=== PATIENT | male | born 1945 | race Caucasian/White ===

== ENCOUNTER → 2022-01-14 07:59 | Outpatient (BNVA) | payer OTHER, SELFPAY | PROVIDERS: PCP Internal Medicine; Visit Provider Nurse Practitioner | DX: Z01.818 Encounter for other preprocedural examination (principal); D12.6 Benign neoplasm of colon, unspecified; Z85.850 Personal history of malignant neoplasm of thyroid | CPT/HCPCS: 99202 ==

== ENCOUNTER 2022-01-16 10:40 | Outpatient (REF) | payer OTHER, SELFPAY ==
[2022-01-16 10:54] LABS: MANUAL DIFF FLAG NO
[2022-01-16 11:27] LABS: Basophils Percent Auto 0.5 % (0-2); Eosinophils Absolute Auto 0.2 X10*3/uL (0.0-0.4); Eosinophils Percent Auto 3.1 % (0-4); Hemoglobin 14.2 g/dl (14.0-18.0); Imm Gran Abs Auto 0.05 X10*3/uL (0.00-0.03); Imm Gran Pct Auto 0.8 % (0.0-0.4); Lymphocytes Absolute Auto 1.3 X10*3/uL (1.2-4.9); Lymphocytes Percent Auto 21.9 % (20-40); Mean Corpuscular HGB Conc 33.8 g/dl (31.0-36.0); Mean Corpuscular Hemoglobin 28.7 pg (27.0-33.0); Mean Platelet Volume 9.9 fL (9.4-12.4); Monocytes Absolute Auto 0.6 X10*3/uL (0.1-1.2); Monocytes Percent Auto 9.1 % (2-11); Neutrophils Absolute Auto 3.9 x10*3/uL (2.0-8.3); Neutrophils Percent Auto 64.6 % (45-73); Platelet Count 215 X10*3/uL (160-400); Red Blood Count 4.94 X10*6/uL (4.60-5.80); Red Cell Distribution Width 13.2 % (11.0-16.0); White Blood Count 6.1 X10*3/uL (4.8-10.8)
[2022-01-16 12:28] LABS: Alanine Aminotransferase 6 U/L (0-40); Albumin Level 4.2 g/dL (3.5-5.0); Alkaline Phosphatase 101 U/L (39-117); Anion Gap 16 (12-20); Aspartate Amino Transferase 20 U/L (5-37); Blood Urea Nitrogen 14 mg/dL (9-16); Calcium 8.5 mg/dL (8.4-10.2); Carbon Dioxide 28 mmol/L (22-29); Chloride 101 mmol/L (96-108); Estimated Glomerular Filt Rate > 60; Glucose Random 112 mg/dL (60-115); Potassium 3.9 mmol/L (3.3-5.1); Sodium 141 mmol/L (135-145)
== END 2022-01-16 10:41 | disposition home or self-care (01) ==
LOC: HO.LAB 10:40
PROVIDERS: PCP Internal Medicine; Visit Provider Nurse Practitioner
DX: D12.6 Benign neoplasm of colon, unspecified (principal)
CPT/HCPCS: 36415; 80053; 85025

== ENCOUNTER 2022-05-14 09:12 | Day surgery (SDC) | payer OTHER, SELFPAY ==
[2022-05-08 15:45] VITALS: BMI 31.4
--- NOTE | 2022-05-13 10:29 | P.CONAN_ITS ---
Documented by User: Teetee Sousa NP 05/13/22 10:32 HPI - Anesthesia Eval Consult details Narrative: 76yo M for Colonoscopy [facility] Active Problems Active Problems: All Active Problems (Updated 05/08/22 @ 15:21 by Kamila Mary, AZUL) Hypothyroidism associated with surgical procedure (Acute) Hypertension (Acute) High cholesterol (Acute) Thoracic aortic aneurysm (Acute) Hard of hearing (Acute) Depression (Acute) PTSD (post-traumatic stress disorder) (Acute) Lumbar degenerative disc disease (Acute) T12 compression fracture (Acute) Papilloma (Acute) Open-angle glaucoma (Acute) GERD (gastroesophageal reflux disease) (Acute) Chronic low back pain (Acute) Chronic, continuous use of opioids (Acute) Tubular adenoma of colon (Acute) Past Medical History Medical History Arthritis Back pain Depression GERD (gastroesophageal reflux disease) HTN (hypertension) PTSD (post-traumatic stress disorder) Thoracic aortic aneurysm Thyroid cancer Tinnitus Family History Family History Father No problems noted. Mother No problems noted. Surgical History Surgical History History of esophagogastroduodenoscopy (EGD) Hx of colonoscopy Hx of inguinal hernia repair Hx of knee surgery Hx of removal of testicle Social History Social History Patient Tobacco Use Status: Never used Tobacco Use of substances other than those prescribed or required for medical reasons: No Are you DNR?: No Advance Directives: No Advance Directives Information Provided: Yes Meds Allergies Allergy/AdvReac Type Severity Reaction Status Date / Time No Known Allergies Allergy Verified 05/08/22 15:10 Home Medications Medication Instructions Recorded Confirmed Last Taken Type amlodipine 2.5 mg tablet 2.5 mg PO DAILY 01/14/22 05/08/22 Unknown History aspirin 81 mg tablet,delayed 81 mg PO DAILY 01/14/22 05/08/22 Unknown History release atorvastatin 40 mg tablet 40 mg PO DAILY 01/14/22 05/08/22 Unknown History cholecalciferol (vitamin D3) 350 350 mcg PO QWEEK 01/14/22 05/08/22 Unknown History mcg (14,000 unit) capsule docusate sodium 100 mg capsule 100 mg PO DAILY 01/14/22 05/08/22 Unknown History dorzolamide 2 % eye drops 1 drp ophthalmic (eye) TID 01/14/22 05/08/22 Unknown History gabapentin 300 mg capsule 300 mg PO DAILY 01/14/22 05/08/22 Unknown History guaifenesin 100 mg/5 mL oral liquid 200 mg PO Q4H PRN Cough 01/14/22 05/08/22 Unknown History hydrochlorothiazide 25 mg tablet 25 mg PO DAILY 01/14/22 05/08/22 Unknown History latanoprost 0.005 % eye drops 1 drp ophthalmic (eye) DAILY 01/14/22 05/08/22 Unknown History levothyroxine 125 mcg capsule 150 mcg PO DAILY 01/14/22 05/08/22 Unknown History magnesium oxide 420 mg tablet 420 mg PO BEDTIME 01/14/22 05/08/22 Unknown History nortriptyline 10 mg capsule 10 mg PO DAILY 01/14/22 05/08/22 Unknown History omega 6-uwp-lxy-fish oil 100 1 cap PO DAILY 01/14/22 05/08/22 Unknown History mg-160 mg-1,000 mg capsule (Fish Oil) sennosides 8.6 mg capsule (senna) 8.6 mg PO DAILY 01/14/22 05/08/22 Unknown History sertraline 25 mg tablet 25 mg PO DAILY 01/14/22 05/08/22 Unknown History simethicone 80 mg chewable tablet 80 mg PO BEDTIME 01/14/22 05/08/22 Unknown History (Gas Relief (simethicone)) terazosin 2 mg capsule 2 mg PO DAILY 01/14/22 05/08/22 Unknown History trazodone 50 mg tablet 25 mg PO DAILY 01/14/22 05/08/22 Unknown History pantoprazole 40 mg tablet,delayed 40 mg PO DAILY 05/08/22 05/08/22 Unknown History release potassium chloride 20 mEq/15 mL 20 meq PO DAILY 05/08/22 05/08/22 Unknown History oral liquid Exam Exam Date and Time: May 13, 2022 1029 Height,Weight and Vital Signs: Height 5 ft 11 in Weight 102.058 kg Pertinent Lab Results Pertinent Lab Results: Laboratory Tests 01/16/22 01/16/22 10:53 10:53 WBC 6.1 Hgb 14.2 Hct 42.0 Plt Count 215 Sodium 141 Potassium 3.9 Chloride 101 Carbon Dioxide 28 BUN 14 Creatinine 0.95 Assessment and Plan Assessment Anesthesia Assessment: Chart Reviewed Documented by User: Amanda Donovan MD 05/14/22 09:41 [facility] Past Medical History Medical History Arthritis Back pain Depression GERD (gastroesophageal reflux disease) HTN (hypertension) PTSD (post-traumatic stress disorder) Thoracic aortic aneurysm Thyroid cancer Tinnitus Family History Family History Father No problems noted. Mother No problems noted. Surgical History Surgical History History of esophagogastroduodenoscopy (EGD) Hx of colonoscopy Hx of inguinal hernia repair Hx of knee surgery Hx of removal of testicle History of Problems with Anesthesia: No Social History Social History Patient Tobacco Use Status: Never used Tobacco Use of substances other than those prescribed or required for medical reasons: No Are you DNR?: No Advance Directives: No Advance Directives Information Provided: Yes Meds Allergies Allergy/AdvReac Type Severity Reaction Status Date / Time No Known Allergies Allergy Verified 05/08/22 15:10 Home Medications Medication Instructions Recorded Confirmed Last Taken Type amlodipine 2.5 mg tablet 2.5 mg PO DAILY 01/14/22 05/08/22 Unknown History aspirin 81 mg tablet,delayed 81 mg PO DAILY 01/14/22 05/08/22 Unknown History release atorvastatin 40 mg tablet 40 mg PO DAILY 01/14/22 05/08/22 Unknown History cholecalciferol (vitamin D3) 350 350 mcg PO QWEEK 01/14/22 05/08/22 Unknown History mcg (14,000 unit) capsule docusate sodium 100 mg capsule 100 mg PO DAILY 01/14/22 05/08/22 Unknown History dorzolamide 2 % eye drops 1 drp ophthalmic (eye) TID 01/14/22 05/08/22 Unknown History gabapentin 300 mg capsule 300 mg PO DAILY 01/14/22 05/08/22 Unknown History guaifenesin 100 mg/5 mL oral liquid 200 mg PO Q4H PRN Cough 01/14/22 05/08/22 Unknown History hydrochlorothiazide 25 mg tablet 25 mg PO DAILY 01/14/22 05/08/22 Unknown History latanoprost 0.005 % eye drops 1 drp ophthalmic (eye) DAILY 01/14/22 05/08/22 Unknown History levothyroxine 125 mcg capsule 150 mcg PO DAILY 01/14/22 05/08/22 Unknown History magnesium oxide 420 mg tablet 420 mg PO BEDTIME 01/14/22 05/08/22 Unknown History nortriptyline 10 mg capsule 10 mg PO DAILY 01/14/22 05/08/22 Unknown History omega 5-qrz-ucq-fish oil 100 1 cap PO DAILY 01/14/22 05/08/22 Unknown History mg-160 mg-1,000 mg capsule (Fish Oil) sennosides 8.6 mg capsule (senna) 8.6 mg PO DAILY 01/14/22 05/08/22 Unknown History sertraline 25 mg tablet 25 mg PO DAILY 01/14/22 05/08/22 Unknown History simethicone 80 mg chewable tablet 80 mg PO BEDTIME 01/14/22 05/08/22 Unknown History (Gas Relief (simethicone)) terazosin 2 mg capsule 2 mg PO DAILY 01/14/22 05/08/22 Unknown History trazodone 50 mg tablet 25 mg PO DAILY 01/14/22 05/08/22 Unknown History pantoprazole 40 mg tablet,delayed 40 mg PO DAILY 05/08/22 05/08/22 Unknown History release potassium chloride 20 mEq/15 mL 20 meq PO DAILY 05/08/22 05/08/22 Unknown History oral liquid Exam Airway Mallampati Class: III TM Dist: >3cm Neck ROM: Full Loose/Missing/Broken Teeth: No Heart: RRR Lungs: CTA Assessment and Plan Assessment Anesthesia Assessment: Anesthesia Plan Discussed Final Anesthetic Review History of Problems with Anesthesia: No NPO: Yes ASA Class: II Final Preanesthetic Review: Meds/Allgs Chart Reviewed, Consent Obtained/Reviewed and Anes Risks/Benef Reviewed Patient Risk: Low Procedure Risk: Low Anesthetic Plan Anesthetic Plan: MAC: Disposition: Standard PACU
--- NOTE | 2022-05-14 09:21 | P.HPSUR_ITS ---
Pre-Procedural Eval Section A Date of Service: 05/14/22 Section B Chief Complaint: Benign neoplasm of colon, Relevant Family History (Specify if Yes): No Relevant Social History: None Present Medications: see Short Stay Collaborative assessment Medical History: Significant History (Arthritis Back pain Depression GERD (gastroesophageal reflux disease) HTN (hypertension) PTSD (post-traumatic stress disorder) Thoracic aortic aneurysm Thyroid cancer Tinnitus) History of Previous Operations: Relevant previous surgery/procedure and date(s) (Thyroidectomy, History of esophagogastroduodenoscopy (EGD) Hx of colonoscopy Hx of inguinal hernia repair Hx of knee surgery Hx of removal of testicle) Allergies: Allergies Allergy/AdvReac Type Severity Reaction Status Date / Time No Known Allergies Allergy Verified 05/08/22 15:10 Review of Systems Sugical H&P ROS: Negative: Constitution, Cardiovascular, Respiratory, Neurological, Psychiatric, Hem-Onc, Allergic/Immunologic, Gastrointestinal, Genitourinary, Musculoskeletal, Integumentary, Endocrine and Eyes/Ears/N ose/Throat Exam Surgical H&P Exam: Normal: HEENT, Normal: Heart, Normal: Lungs, Normal: Extremities, Normal: Abdomen, Normal: Skin and Normal: Neurological Plan Diagnosis/Plan: Unchanged I have reviewed the history and physical and performed a pertinent physical examination on my patient. No changes have occurred unless specified.
--- NOTE | 2022-05-14 09:25 | P.OP_ITS ---
Operative Note Operative Note Date of Service: 05/14/22 Narrative: Operative Information Procedure Description: Colonoscopy Indication: screening Anesthesia: MAC COLONOSCOPY Instrument: Olympus variable stiffness Adult scope 190L Colonoscopy Monitoring: Vital signs and clinical assessment, continuous EKG monitoring, Pulse oximetry, Carbon Dioxide monitoring and blood pressure monitoring were done throughout the procedure. Colon withdrawal time was 8 minutes. Procedure: The patient was placed in the left lateral decubitis position and pre-procedure medications were administered. After a digital rectal examination of the ano-rectum, the video colonoscope was inserted into the rectum and advanced through the colon to the cecum/TI. The colonoscope was slowly withdrawn in a retrograde panoramic fashion and the colon mucosa was carefully examined including a retroflexed view of the rectum. Findings and interventions are described below. Procedure Difficulty: easy Findings: Terminal Ileum-normal Cecum:normal Ascending Colon: normal Transverse Colon -normal Descending Colon:normal Sigmoid Colon: moderate diverticulosis with luminal narrowing, Rectum: Retroflexion with moderate sized internal hemorrhoids, grade II Anorectum - normal Colon preparation: [place] Bowel Preparation Scale Right colon; 3 Transverse colon: 3 Left colon; 3 (0 = Unprepared colon segment with mucosa not seen due to solid stool that cannot be cleared. 1 = Portion of mucosa of the colon segment seen, but other areas of the colon segment not well seen due to staining, residual stool and/or opaque liquid. 2 = Minor amount of residual staining, small fragments of stool and/or opaque liquid, but mucosa of colon segment seen well. 3 = Entire mucosa of colon segment seen well with no residual staining, small fragments of stool or opaque liquid) Impression and Post Procedure Diagnosis: internal hemorrhoids diverticular disease Plan: High fiber diet leaflet Avoid straining at stool, epsom salts and sitz bath, anusol supps or cream Repeat Colonoscopy in 10 years if health allows or earlier if clinically indicated, otherwise this would be his last screening colonoscopy Above findings were reviewed with the patient and relevant handouts were provided if indicated.
[2022-05-14 09:42] VITALS: BP 155/75; PULSE 65; RESP 15; TEMP 36.4; O2SAT 98
[2022-05-14] MEDS: Lactated Ringers 1,000 ML 100 ML IVCONT (09:43)
[2022-05-14 10:14] VITALS: BP 97/47; PULSE 55; RESP 16; TEMP 36.4; O2SAT 96
[2022-05-14 10:34] VITALS: BP 134/55; PULSE 58; RESP 18; TEMP 36.4; O2SAT 97
== END 2022-05-14 11:19 | disposition home or self-care (01) ==
PROVIDERS: PCP Internal Medicine; Visit Provider Internal Medicine Gastroenterology
PROC: 0DJD8ZZ Inspection of Lower Intestinal Tract, Via Natural or Artificial Opening Endoscopic (ICD-10-PCS; CPT 45378; principal; 2022-05-14 10:10)
DX: Z12.11 Encounter for screening for malignant neoplasm of colon (principal); K57.30 Diverticulosis of large intestine without perforation or abscess without bleeding; K64.1 Second degree hemorrhoids; Z86.010 Personal history of colon polyps; I10 Essential (primary) hypertension; K21.9 Gastro-esophageal reflux disease without esophagitis; E78.00 Pure hypercholesterolemia, unspecified; Z79.82 Long term (current) use of aspirin; Z79.899 Other long term (current) drug therapy; Z85.850 Personal history of malignant neoplasm of thyroid
CPT/HCPCS: G0105

== ENCOUNTER → 2022-05-27 07:31 | Outpatient (BNVA) | payer OTHER, SELFPAY | PROVIDERS: PCP Internal Medicine; Referring Provider Internal Medicine; Visit Provider Nurse Practitioner | DX: D12.6 Benign neoplasm of colon, unspecified (principal); K21.9 Gastro-esophageal reflux disease without esophagitis | CPT/HCPCS: 99212 ==

== ENCOUNTER → 2024-01-25 09:06 | Outpatient (REF) | payer OTHER, SELFPAY ==
--- NOTE | 2024-01-25 | CA_ITS ---
Acquisition Time: 2024-01-25 09:31:07 Total Exercise Time: 00:02:00 Test Indications: HTN Medications: SEE H Protocol: LEXISCAN Max HR: 081 BPM 56% of Pred: 144 BPM Max BP: 148/070 mmHG Max Work Load: 1.6 METS Pharmacological stress test while walking slowly on the treadmill due to bradycardia without anginal symptoms, with PVCs, atrail tach, with normotensive response to injection, with nondiagnoisirtic EKGs. Nuclear images pending. Test reviewed with Dr. Omer. Referred By: Iliana Duke Overread By: Bhargavi Mcclendon
--- NOTE | ~2024-01-25 | NM_ITS ---
Myocardial perfusion study Indication: Chest pain to evaluate for myocardial ischemia Technique: The patient was brought in for a Lexiscan perfusion study on 01/25/2024. Patient performed low-level exercise and was injected 0.4 mg of Lexiscan intravenously. Within a minute of injection, 30 mCi of sestamibi was given intravenously. Images were obtained using the SPECT gamma camera interlaced with the gating device. Images were obtained in supine position. Resting perfusion study was performed on 01/26/2024. Patient was administered 30 mCi of sestamibi intravenously at rest. Images were then obtained in supine position. Images obtained with and without CT attenuation. Total DLP 119 mGy-cm. Images were processed with the software and compared side to side in short axis, horizontal long axis and vertical long axis views. Findings: The stress perfusion study showed non attenuated images show some thinning of the distal lateral and apical wall of the LV myocardium as well as mildly reduced uptake in the basal inferior wall of the LV myocardium. Remainder of the LV myocardium is normally perfused. Attenuation corrected images show mildly reduced uptake in the apex of the LV myocardium.. The gated study shows normal LV systolic function with calculated LVEF of 63%. LV cavity is normal in size. The gated study shows normal systolic wall thickening and contraction of segments. Resting study shows no change in perfusion pattern compared to stress study. Gating at rest reveals normal systolic wall motion with ejection fraction at greater than 60%. The findings are consistent with no reversible defect suggestive of ischemia. Likely normal myocardial perfusion. NM/NM milagro perf SPECT rest & str Impression: 1. Myocardial perfusion imaging study shows likely normal myocardial perfusion 2. Gated LVEF is 63% 3. Transient ischemic dilatation not present EKG is nondiagnostic for ischemia
== END ==
LOC: HO.CARD 09:06
PROVIDERS: Visit Provider Internal Medicine
DX: R07.89 Other chest pain (principal)
CPT/HCPCS: 78452; 93017; A9500; J0280; J2785

== ENCOUNTER → 2024-01-25 09:31 | Outpatient (BNV) | payer OTHER, SELFPAY | PROVIDERS: Visit Provider Nurse Practitioner | DX: R07.9 Chest pain, unspecified (principal) | CPT/HCPCS: 78452; 93016; 93018 ==

== ENCOUNTER 2024-04-15 09:53 | Emergency (ER) | payer OTHER, SELFPAY ==
--- NOTE | ~2024-04-15 | XR_ITS ---
EXAMINATION: XR SHOULDER, RIGHT CLINICAL INFORMATION: Injury one week ago. COMPARISON: None available. TECHNIQUE: AP external rotation, Grashey, scapular Y, and axillary views of the right shoulder. FINDINGS: Degenerative changes in the glenohumeral joints and acromioclavicular joint. No acute cortical disruption or gross malalignment. No lytic or blastic lesions well-corticated calcifications at the subacromial joints.. XR/XR shoulder RT min 2V IMPRESSION: Osteoarthrosis without acute fracture or dislocation. Electronically signed by: Lavon Melissa MD 04/15/2024 10:43 AM [facility]
[2024-04-15 10:12] VITALS: BP 136/63; PULSE 53; RESP 18; TEMP 36.8; O2SAT 97; BMI 32.0
--- NOTE | 2024-04-15 10:18 | ED_ITS ---
HPI - Extremity Problem General Chief complaint: Extremity Injury, Upper Stated complaint: shoulder pain Time Seen by Provider: 04/15/24 10:18 Source: patient Mode of arrival: ambulatory Limitations: no limitations History of Present Illness ED Provider: OSCAR LUX PA-C HPI Narrative: 78 year old male with pmhx significant for hypothyroidism, HTN, depression, PTSD, GERD presents to the ED today for evaluation of right shoulder pain x1 week. Admits to using a drill with a wire brush attachment. The brush attachment got caught in his glove and he was trying to pull the attachment from his glove with his RUE. Reports pain to his right shoulder since this time. Believe he may have strained the shoulder when pulling Admits to slight tingling sensation down the RUE beginning in the right shoulder. Denies any difficulty moving the shoulder. Taking Tylenol and applying bengay muscle cream at home with minimal relief. No blunt trauma to the shoulder. No hx of surgery on the shoulder. Denies fever, chills, numbness/weakness of the RUE. Related Data Home Medications ?Medication ?Instructions ?Recorded ?Confirmed amlodipine 2.5 mg tablet 2.5 mg PO DAILY 01/14/22 05/08/22 aspirin 81 mg tablet,delayed 81 mg PO DAILY 01/14/22 05/08/22 release atorvastatin 40 mg tablet 40 mg PO DAILY 01/14/22 05/08/22 cholecalciferol (vitamin D3) 350 350 mcg PO QWEEK 01/14/22 05/08/22 mcg (14,000 unit) capsule docusate sodium 100 mg capsule 100 mg PO DAILY 01/14/22 05/08/22 dorzolamide 2 % eye drops 1 drp ophthalmic (eye) TID 01/14/22 05/08/22 gabapentin 300 mg capsule 300 mg PO DAILY 01/14/22 05/08/22 guaifenesin 100 mg/5 mL oral liquid 200 mg PO Q4H PRN Cough 01/14/22 05/08/22 hydrochlorothiazide 25 mg tablet 25 mg PO DAILY 01/14/22 05/08/22 latanoprost 0.005 % eye drops 1 drp ophthalmic (eye) DAILY 01/14/22 05/08/22 levothyroxine 125 mcg capsule 150 mcg PO DAILY 01/14/22 05/08/22 magnesium oxide 420 mg tablet 420 mg PO BEDTIME 01/14/22 05/08/22 nortriptyline 10 mg capsule 10 mg PO DAILY 01/14/22 05/08/22 omega 2-ybj-wka-fish oil 100 1 cap PO DAILY 01/14/22 05/08/22 mg-160 mg-1,000 mg capsule (Fish Oil) sennosides 8.6 mg capsule (senna) 8.6 mg PO DAILY 01/14/22 05/08/22 sertraline 25 mg tablet 25 mg PO DAILY 01/14/22 05/08/22 simethicone 80 mg chewable tablet 80 mg PO BEDTIME 01/14/22 05/08/22 (Gas Relief (simethicone)) terazosin 2 mg capsule 2 mg PO DAILY 01/14/22 05/08/22 trazodone 50 mg tablet 25 mg PO DAILY 01/14/22 05/08/22 pantoprazole 40 mg tablet,delayed 40 mg PO DAILY 05/08/22 05/08/22 release potassium chloride 20 mEq/15 mL 20 meq PO DAILY 05/08/22 05/08/22 oral liquid Previous Rx's ?Medication ?Instructions ?Recorded cyclobenzaprine 5 mg tablet 5 mg PO Q8H PRN muscle pain #7 tabs 04/15/24 prednisone 20 mg tablet 40 mg (2 x 20 mg) PO DAILY 4 days 04/15/24 #8 tabs Allergies Allergy/AdvReac Type Severity Reaction Status Date / Time No Known Allergies Allergy Verified 04/15/24 10:15 Review of Systems Review of Systems: Constitutional: No fever, chills, fatigue, night sweats, weight changes ENT/Mouth: No ear pain, hearing loss, nasal congestion, sinus pain, rhinorrhea, sore throat Eyes: No eye pain, swelling, redness, vision changes, discharge Cardio: No chest pain, palpitations, CHILD, orthopnea, peripheral edema Pulm: No SOB, cough, sputum, wheezing, dyspnea, hemoptysis GI: No nausea, vomiting, hematemesis, abdominal pain, diarrhea, constipation, hematochezia, melena : No irregular bleeding, dysuria, frequency, urgency, hesitancy, hematuria, flank pain, urinary flow changes, urinary incontinence or retention MSK: No back pain, neck pain, joint pain, myalgias, +right shoulder pain Skin: No lesions, rashes Neuro: No weakness, numbness, paresthesias, LOC, dizziness, headache Psych: No anxiety/panic, depression, SI/HI, AH/VH All other systems reviewed and are negative. [facility] Past Medical History Attestation statement: The following information was validated with the patient. Source: old records reviewed and nursing notes reviewed Medical History Tinnitus GERD (gastroesophageal reflux disease) Thoracic aortic aneurysm Arthritis Back pain PTSD (post-traumatic stress disorder) Depression HTN (hypertension) Thyroid cancer Surgical History Hx of removal of testicle Hx of inguinal hernia repair History of esophagogastroduodenoscopy (EGD) Hx of colonoscopy Hx of knee surgery Family History Family History Father No problems noted. Mother No problems noted. Social History Social History Patient Tobacco Use Status: Never used Tobacco Advance Directives: Yes Advance Directives Information Provided: Yes Advance Directives on File: No Do you have a plan to hurt others: No Plan Physical Exam 2 Vital Signs: Vital Signs: Last Vital Signs Temp 98.1 F 04/15/24 11:29 Pulse 51 04/15/24 11:29 Resp 16 04/15/24 11:29 BP 141/64 H 04/15/24 11:29 Pulse Ox 97 04/15/24 11:29 O2 Del Method Room Air 04/15/24 11:29 BMI result Body Mass Index 32.0 hypertensive, vitals otherwise wnl General: Well appearing, in no acute distress. Skin: Warm, dry, intact. No rashes or lesions. Head: Normocephalic, atraumatic. EENT: Hearing is intact b/l. Conjunctiva clear. PERRLA. EOM intact. Moist mucous membranes.? Neck: Supple without LAD Cardiac: Chest wall symmetric. RRR Lungs: Normal respiratory effort without accessory muscle use. CTA bilaterally Abdomen: Soft, non-tender, non-distended Back: No midline spinous or paraspinal tenderness. No step off deformity. Ext: + right shoulder without deformity or swelling. No overlying skin changes. Full ROM intact to right shoulder with abduction, adduction. Nontender to palpation over glenohumeral joint. Tender along right trapezius muscle. Strength 5/5 intact. Sensation intact. [employer] strength intact. 2+ radial/ulnar pulse intact. Neuro: AOx3. Normal speech. Ambulating with steady gait. Psych: Appropriate mood and affect. Responds appropriately to questions. Course Course Course Narrative: X-rays do not demonstrate fracture. There is osteoarthrosis within the joints themselves. Physical exam is concerning for muscle strain. I do not have concern for rotator cuff tear or injury. Patient provided with sling for comfort. Prednisone and Flexeril sent to pharmacy for pain control. Patient has remained stable throughout ED visit today. Discussed worrisome signs and symptoms and when to return to the ED. All questions answered at this time. Patient is agreeable with disposition and stable for discharge. Medications Administered Discontinued Medications Generic Name Dose Route Start Last Admin Trade Name Freq PRN Reason Stop Dose Admin Cyclobenzaprine HCl 10 mg 04/15/24 10:36 04/15/24 10:43 Cyclobenzaprine Hcl 10 Mg Tablet PO 04/15/24 10:37 10 mg ONCE ONE Administration Prednisone 40 mg 04/15/24 10:36 04/15/24 10:43 Prednisone 20 Mg Tablet PO 04/15/24 10:37 40 mg ONCE ONE Administration Medical Decision Making Medical Decision Making MDM Narrative: 78 year old male with pmhx significant for hypothyroidism, HTN, depression, PTSD, GERD presents to the ED today for evaluation of right shoulder pain x1 week. Hypertensive, vitals otherwise WNL. He is nontoxic appearing in no acute distress. right shoulder without deformity or swelling. No overlying skin changes. Full ROM intact to right shoulder with abduction, adduction. Nontender to palpation over glenohumeral joint. Tender along right trapezius muscle. Strength 5/5 intact. Sensation intact. [employer] strength intact. 2+ radial/ulnar pulse intact. Differential diagnosis includes MSK sprain/strain, fracture, dislocation, contusion, muscle spasm. Unlikely neurovascular compromise, threat to limb, compartment syndrome. Plan for x-rays, pain control, re-evaluation. Differential Diagnosis Differential Diagnoses: The differential diagnosis associated with the presentation includes As above Admission/Observation Not indicated Independent Interpretation I performed an independent interpretation of an: Plain X-Ray Interpretation: X-ray right shoulder without fracture Radiology Impression Discussion of test interpretation with radiology: I have reviewed the radiologist's reading. Radiologist Impression: EXAMINATION: XR SHOULDER, RIGHT CLINICAL INFORMATION: Injury one week ago. COMPARISON: None available. TECHNIQUE: AP external rotation, Grashey, scapular Y, and axillary views of the right shoulder. FINDINGS: Degenerative changes in the glenohumeral joints and acromioclavicular joint. No acute cortical disruption or gross malalignment. No lytic or blastic lesions well-corticated calcifications at the subacromial joints.. XR/XR shoulder RT min 2V IMPRESSION: Osteoarthrosis without acute fracture or dislocation. Electronically signed by: Lavon Melissa MD 04/15/2024 10:43 AM EST External Record Review External record reviewed: Inpatient record Prescription Management I considered prescription management with: Pain Medication Social Determinants Patient?s care significantly limited by Social Determinants of Health including: Other Social Determinant of Health Procedures Orthopedic Splinting/Casting Injury #1: Side: right Upper Extremity Injury Location: shoulder Upper Extremity Immobilizer: sling/shoulder immobilizer Critical Care Time Critical Care Time Critical Care Time: No Discharge Plan Discharge Clinical Impression: Muscle strain of right shoulder Patient Disposition: Home, Self-Care Instructions: Muscle Strain (ED), How to Use a Sling (ED) Additional Instructions: You were evaluated in the ED today for your right shoulder pain. The xray of your right shoulder does not demonstrate fracture or dislocation. It does show degenerative osteoarthritis within the joint itself. Your physical exam is consistent with a muscle strain/spasm. You have been placed in a sling today for comfort. Wear this over the next few days. Make sure to take the sling off and move the shoulder around a few times during the day to prevent frozen shoulder. Prednisone is a steroid that has been sent to your pharmacy for you to take over the next 4 days to help with inflammation. You already received a dose of this in the ED today so please take your next dose tomorrow. Flexeril as a muscle relaxer that has been sent to your pharmacy. Please take this every 8 hours over the next few days. You may also take 600mg ibuprofen every 6 hours or Tylenol 650mg every 6 hours as needed for pain. If needed, you can alternate these medications so that you take one medication every 3 hours. For example, at noon take ibuprofen, then at 3pm take Tylenol, then at 6pm take ibuprofen. If symptoms persist despite rest and treatment, please follow-up with your primary care provider or orthopedic doctor as you may require outpatient MRI for further evaluation. If you do not have an orthopedic doctor, a referral has been provided to you. You may call them to establish care. they will not call you. Return with new or worsening symptoms. In the case of an emergency call 911. Prescriptions: New cyclobenzaprine 5 mg tablet 5 mg PO Q8H PRN (Reason: muscle pain) Qty: 7 0RF prednisone 20 mg tablet 40 mg PO DAILY 4 Days Qty: 8 0RF No Action potassium chloride 20 mEq/15 mL Liquid 20 meq PO DAILY pantoprazole 40 mg Tablet,Delayed Release (Dr/Ec) 40 mg PO DAILY amlodipine 2.5 mg tablet 2.5 mg PO DAILY aspirin 81 mg tablet,delayed release (DR/EC) 81 mg PO DAILY atorvastatin 40 mg tablet 40 mg PO DAILY cholecalciferol (vitamin D3) 350 mcg (14,000 unit) capsule 350 mcg PO QWEEK dorzolamide 2 % drops 1 drp ophthalmic (eye) TID gabapentin 300 mg capsule 300 mg PO DAILY hydrochlorothiazide 25 mg tablet 25 mg PO DAILY latanoprost 0.005 % drops 1 drp ophthalmic (eye) DAILY levothyroxine 125 mcg capsule 150 mcg PO DAILY magnesium oxide 420 mg tablet 420 mg PO BEDTIME nortriptyline 10 mg capsule 10 mg PO DAILY Fish Oil 100-160-1,000 mg capsule 1 cap PO DAILY senna 8.6 mg capsule 8.6 mg PO DAILY sertraline 25 mg tablet 25 mg PO DAILY terazosin 2 mg capsule 2 mg PO DAILY trazodone 50 mg tablet 25 mg PO DAILY docusate sodium 100 mg capsule 100 mg PO DAILY guaifenesin 100 mg/5 mL liquid 200 mg PO Q4H PRN (Reason: Cough) simethicone [Gas Relief (simethicone)] 80 mg tablet,chewable 80 mg PO BEDTIME Referrals: [facility] [place] Orthopedic Surgeons [Provider Group] Interventions: ED Discharge Assessment Last Done: 04/15/24 11:29 Discharge Date/Time: 04/15/24 11:30 Print Language: Lithuanian
[2024-04-15] MEDS: Cyclobenzaprine HCl 10 MG TABLET PO (10:43)
[2024-04-15] MEDS: predniSONE 20 MG TABLET 40 MG PO (10:43)
[2024-04-15 11:05] VITALS: BP 141/64; PULSE 51; RESP 16; TEMP 36.7; O2SAT 97
[2024-04-15 11:29] VITALS: BP 141/64; PULSE 51; RESP 16; TEMP 36.7; O2SAT 97
== END 2024-04-15 11:30 | disposition home or self-care (01) ==
PROVIDERS: Emergency Provider Emergency Medicine
DX: S46.911A Strain of unspecified muscle, fascia and tendon at shoulder and upper arm level, right arm, initial encounter (principal); X50.9XXA Other and unspecified overexertion or strenuous movements or postures, initial encounter; Y93.89 Activity, other specified; Y92.019 Unspecified place in single-family (private) house as the place of occurrence of the external cause; Y99.9 Unspecified external cause status
CPT/HCPCS: 73030; 99283

== ENCOUNTER → 2024-04-15 10:21 | Outpatient (BNV) | payer OTHER, SELFPAY | PROVIDERS: Emergency Provider Emergency Medicine; Visit Provider Radiology Diagnostic Radiology | DX: M19.011 Primary osteoarthritis, right shoulder (principal) | CPT/HCPCS: 73030 ==

== ENCOUNTER 2024-05-11 17:40 | Outpatient (REF) | payer OTHER, SELFPAY ==
--- NOTE | ~2024-05-11 | MR_ITS ---
EXAMINATION: MR SHOULDER WITHOUT CONTRAST, RIGHT CLINICAL INFORMATION: Injury. COMPARISON: X-ray 04/15/2024 TECHNIQUE: MRI of the shoulder without contrast was performed on a high-field scanner. FINDINGS: ROTATOR CUFF: Mild-moderate supraspinatus tendinosis. 1.2 x 1.9 cm (AP x ML) intrasubstance/partial thickness articular aspect tear in the middle fibers. Mild infraspinatus tendinosis. Teres minor is intact. Mild-moderate subscapularis tendinosis. No muscle atrophy or fatty infiltration. BICEPS: Mild-moderate biceps tendinosis, with a longitudinally propagating partial tear. CORACOACROMIAL ARCH: The undersurface of the acromion is flat with no subacromial spur. Moderate acromioclavicular arthritis. Trace subacromial subdeltoid bursitis. LABRUM/CAPSULE: Superior and posterosuperior labral degeneration with fraying/tear. Intact inferior capsule. GLENOHUMERAL JOINT/MARROW: Mild-moderate glenohumeral joint arthritis. 1.1 cm low T1 signal focus adjacent to the superior glenoid, probable loose body. There is a additional ossification superior to the humeral head, seen on the prior x-ray, is not clearly evident on MRI. Small effusion. MR/MR shoulder RT wo con IMPRESSION: 1. Mild-moderate supraspinatus tendinosis. 1.2 x 1.9 cm intrasubstance/partial thickness articular aspect tear. 2. Mild infraspinatus tendinosis. Mild-moderate subscapularis tendinosis. 3. Mild-moderate biceps tendinosis with longitudinally propagating partial tear. 4. Superior and posterosuperior labral degeneration with fraying/tear. 5. Mild-moderate glenohumeral joint arthritis. 1.1 cm probable loose body adjacent to the superior glenoid. Small effusion. 6. Moderate acromioclavicular arthritis. Electronically signed by: Jonathon Evans MD 05/20/2024 04:15 PM [facility]
== END 2024-05-11 17:41 | disposition home or self-care (01) ==
LOC: HO.MRI 17:40
PROVIDERS: Visit Provider Physician Assistant Medical
DX: S46.811A Strain of other muscles, fascia and tendons at shoulder and upper arm level, right arm, initial encounter (principal)
CPT/HCPCS: 73221

== ENCOUNTER 2024-05-27 10:34 | Outpatient (AMB) | payer OTHER, SELFPAY ==
--- NOTE | 2024-05-27 10:51 | MHC.OFFVIS ---
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 He mentions that his arm feels numb and he is lacking strength. Patient reports trying some medication for the pain which didn't give him relief. 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 The patient presented to the ED on 04/15/24 for right shoulder pain. The patient reported using a drill with a wire brush attachment that caught in his gloves. He tried to pull the attachment from his glove with his right upper extremity. He has been experiencing right shoulder pain since then. He also mentioned a slight tingling sensation down the right upper extremity developing in the right shoulder. X-rays of the right shoulder were performed. She was placed in a sling for comfort. She was prescribed cyclobenzaprine 5 mg PO Q8H PRN and prednisone 40 mg PO daily for 4 days. Additionally, she was recommended taking ibuprofen 600 mg PO Q6H or Tylenol 650 mg Q6H PRN for pain.? While in the office today, the patient confirms that he was using a drill and the wire brush to grind a piece of metal. His gloves got stuck and he was attempting to stop the drill. His right arm was jerked from the drill while stopping the drill. He reports numbness and tingling in all the right sided digits that is more prominent in the third, fourth and fifth digit. He also mentions having weakness/lacking strength in the right upper extremity. He has tried some medication for pain relief without any relief. He has had an MRI of the right upper extremity. ON LICENSE OF [facility] Medical History Tinnitus GERD (gastroesophageal reflux disease) Thoracic aortic aneurysm Arthritis Back pain PTSD (post-traumatic stress disorder) Depression HTN (hypertension) Thyroid cancer Surgical History Hx of removal of testicle Hx of inguinal hernia repair History of esophagogastroduodenoscopy (EGD) Hx of colonoscopy Hx of knee surgery Family History Father No problems noted. Mother No problems noted. Social History (Updated 05/27/24 @ 10:58 by Edson Faustin) Alcohol intake: never Patient Tobacco Use Status: Never used Tobacco Current occupational status: retired Current occupation: right hand dominant Review of Systems Const All systems reviewed & are unremarkable except as noted in HPI and below Physical Exam Const General: cooperative and no acute distress Orientation/consciousness: patient oriented x3 Resp Effort & Inspection: normal respiratory effort and able to speak in complete sentences Cardio Peripheral pulses: Peripheral pulses 2+ throughout Skin General skin exam: no rashes or lesions noted Neuro General: patient oriented x3 Extrem Other: Right shoulder: Normal to inspection. No ecchymosis, erythema, or edema. Full shoulder ROM in all planes. Negative cross-body reach. Negative empty can. Negative drop arm. NVI. Right elbow: Normal to inspection. No ecchymosis, erythema, or edema. No tenderness to palpation over the olecranon. No tenderness to the medial or lateral epicondyle. NVI. Right hand: Normal to inspection. No ecchymosis, erythema, or edema. Able to perform full finger flexion, extension, abduction, adduction, finger cross, okay sign, and thumbs up without deficit. Able to make a closed fist. Sensation intact. Capillary refill is brisk. Radial pulse intact. Assessment & Plan Assessment & Plan (1) Primary osteoarthritis, right shoulder: Code(s): M19.011 - Primary osteoarthritis, right shoulder Category: Medical (2) Right upper extremity numbness: Code(s): R20.0 - Anesthesia of skin Category: Medical Plan Mr. Cooney is a 78-year-old [id number] male who presents in the office today, as a new patient, for an evaluation of a right shoulder pain. The patient presented to the ED on 04/15/24 for right shoulder pain. The patient reported using a drill with a wire brush attachment that caught in his gloves. He tried to pull the attachment from his glove with his right upper extremity. He has been experiencing right shoulder pain since then. He also mentioned a slight tingling sensation down the right upper extremity developing in the right shoulder. X-rays of the right shoulder were performed. She was placed in a sling for comfort. She was prescribed cyclobenzaprine 5 mg PO Q8H PRN and prednisone 40 mg PO daily for 4 days. Additionally, she was recommended taking ibuprofen 600 mg PO Q6H or Tylenol 650 mg Q6H PRN for pain. While in the office today, the patient confirms that he was using a drill and the wire brush to grind a piece of metal. His gloves got stuck and he was attempting to stop the drill. His right arm was jerked from the drill while stopping the drill. He reports numbness and tingling in all the right sided digits that is more prominent in the third, fourth and fifth digit. He also mentions having weakness/lacking strength in the right upper extremity. He has tried some medication for pain relief without any relief. He has had an MRI of the right upper extremity. I have ordered an EMG study to further evaluate the possibility of nerve compression or injury. Follow-up will be after the EMG results are obtained, or sooner if needed. MRI of the right shoulder, obtained on 05/11/24, revealed: 1. Mild-moderate supraspinatus tendinosis. 1.2 x 1.9 cm intrasubstance/partial thickness articular aspect tear. 2. Mild infraspinatus tendinosis. Mild-moderate subscapularis tendinosis. 3. Mild-moderate biceps tendinosis with longitudinally propagating partial tear. 4. Superior and posterosuperior labral degeneration with fraying/tear. 5. Mild-moderate glenohumeral joint arthritis. 1.1 cm probable loose body adjacent to the superior glenoid. Small effusion. 6. Moderate acromioclavicular arthritis. X-rays of the right shoulder, obtained on 04/15/24, revealed: Degenerative changes in the glenohumeral joints and acromioclavicular joint. No acute cortical disruption or gross malalignment. No lytic or blastic lesions well-corticated calcifications at the subacromial joints, superior to the glenohumeral joint. Orders: Orders NE electromyogram (EMG) Today M19.011 - Primary osteoarthritis, right shoulder, R20.0 - Anesthesia of skin Patient Instructions: Scribed by Brisa Diop, medical doctor md/medical director, for Eli Burgos PA-C on 05/27/24 at 12:17 pm EST. Coding Level of Care Code New Pt Level 4 (71587) Diagnoses Primary osteoarthritis, right shoulder M19.011 Right upper extremity numbness R20.0
== END 2024-05-27 11:25 | disposition home or self-care (01) ==
PROVIDERS: Visit Provider Physician Assistant
DX: M19.011 Primary osteoarthritis, right shoulder (principal); R20.0 Anesthesia of skin
CPT/HCPCS: 99204

== ENCOUNTER → 2024-05-27 10:34 | Outpatient (BNVA) | payer OTHER, SELFPAY | PROVIDERS: Visit Provider Physician Assistant | DX: M19.011 Primary osteoarthritis, right shoulder (principal); R20.0 Anesthesia of skin | CPT/HCPCS: 99202; J1010; J2003 ==

== ENCOUNTER 2024-06-30 14:51 | Outpatient (REF) | payer OTHER, SELFPAY ==
--- NOTE | 2024-06-30 14:55 | EMG_ITS ---
Chief complaint: Numbness on right 3rd to 5th digits, denies neck pain History of thyroid cancer, status post chemo and radiation Reason for referral: Evaluate for Carpal Tunnel Syndrome versus ulnar neuropathy Referred by: Eli ABAD Procedure done: Right upper extremity NCS/EMG Precautions and/or limitations: None The limb temperature was monitored continuously and remained between 32-36 degrees C during the performance of the NCS. Ulnar motor NCS was performed with moderate elbow flexion between 70-90 degrees, with across-elbow distance of 10 cm. Nerve Conduction Studies Anti Sensory Summary Table ?Stim Site NR Onset (ms) Norm Onset (ms) Peak (ms) Norm Peak (ms) O-P Amp (?V) Norm O-P Amp Site1 Site2 Delta-0 (ms) Dist (cm) Vikash (m/s) Norm Vikash (m/s) Right Median Anti Sensory (2nd Digit) Wrist ? 3.2 4.1 <3.6 13.3 >10 Wrist 2nd Digit 3.2 14.0 44 Right Radial Anti Sensory (Thumb) Forearm ? 1.8 2.4 <3.1 11.1 Forearm Thumb 1.8 0.0 Right Ulnar Anti Sensory (5th Digit) Wrist ? 3.0 3.8 <3.7 9.3 >15.0 Wrist 5th Digit 3.0 14.0 47 Motor Summary Table ?Stim Site NR Onset (ms) Norm Onset (ms) O-P Amp (mV) Norm O-P Amp iAmp (mV) Amp (1st) (%) Site1 Site2 Delta-0 (ms) Dist (cm) Vikash (m/s) Norm Vikash (m/s) Right Median Motor (Abd Poll Brev) Wrist ? 5.5 <3.9 6.3 >4.5 8.4 100.0 Elbow Wrist 4.7 23.0 49 >45 Elbow ? 10.2 6.4 8.4 101.6 Right Ulnar Motor (Abd Dig Minimi) Wrist ? 4.1 <3.0 7.0 >5 8.1 100.0 B Elbow Wrist 4.5 22.0 49 >45 B Elbow ? 8.6 6.9 8.0 98.6 A Elbow B Elbow 1.2 10.0 83 >45 A Elbow ? 9.8 6.7 7.9 95.7 Right Ulnar Motor (FDI) Wrist ? 5.5 <3.0 4.3 >5 4.6 100.0 B Elbow Wrist 3.2 21.0 66 >45 B Elbow ? 8.7 4.2 4.6 97.7 A Elbow B Elbow 1.9 10.0 53 >45 A Elbow ? 10.6 4.0 4.4 93.0 EMG ?Side Muscle Nerve Root Ins Act Fibs Psw Amp Dur Poly Recrt Int Pat Comment Right 1stDorInt Ulnar C8-T1 Nml Nml Nml Nml Nml 0 Nml Complete Right FlexCarRad Median C6-7 Nml Nml Nml Nml Nml 0 Nml Complete Right Biceps Musculocut C5-6 Nml Nml Nml Nml Nml 0 Nml Complete Right Triceps Radial C6-7-8 Nml Nml Nml Nml Nml 0 Nml Complete Right Deltoid Axillary C5-6 Nml Nml Nml Nml Nml 0 Nml Complete Right FlexCarpiUln Ulnar C8,T1 Nml Nml Nml Nml Nml 0 Nml Complete FINDINGS: Right median motor nerve showed prolonged distal latency, normal amplitude and normal conduction velocity. Right ulnar motor nerve, recording at ADM, showed prolonged distal latency, normal amplitude and normal conduction velocity. Right ulnar motor nerve, recording at FDI, showed prolonged distal latency, small amplitude and slow conduction velocity across elbow. Right median sensory nerve showed prolonged peak latency. Right ulnar sensory nerve showed prolonged peak latency and small amplitude. All other nerves tested were within normal. Concentric needle EMG was performed in selected muscles of the right upper extremity. Study did not reveal signs of electric abnormalities as shown in the table above. IMPRESSION: 1. This is an abnormal study. 2. There is electrodiagnostic evidence for right moderate-severe median neuropathy at the wrist, consistent with carpal tunnel syndrome. 3. There is electrodiagnostic evidence for right ulnar neuropathy at the elbow. 4. There is no electrodiagnostic evidence for brachial plexopathy or cervical radiculopathy. Thank you for your kind referral. Qiana Cantu MD, AISSATOU Board Certified, [place] [employer] and Rehabilitation (ABPMR) Board Certified, [place] Board of Electrodiagnostic Medicine (ABEM) [facility] [id number] [facility]
== END 2024-06-30 14:52 | disposition home or self-care (01) ==
LOC: HO.NEURO 14:51
PROVIDERS: Visit Provider Physician Assistant
DX: R20.0 Anesthesia of skin (principal); M19.011 Primary osteoarthritis, right shoulder
CPT/HCPCS: 95886; 95909

== ENCOUNTER → 2024-06-30 14:55 | Outpatient (BNV) | payer OTHER, SELFPAY | PROVIDERS: Visit Provider Physical Medicine & Rehabilitation | DX: G56.01 Carpal tunnel syndrome, right upper limb (principal); G56.21 Lesion of ulnar nerve, right upper limb | CPT/HCPCS: 95886; 95909 ==

== ENCOUNTER 2024-07-19 08:07 | Outpatient (AMB) | payer OTHER, SELFPAY ==
[2024-07-19 08:23] VITALS: BMI 31.9
--- NOTE | 2024-07-19 08:23 | A.OFFVIS_ITS ---
Vital Signs 07/19/24 08:23 Height 5 ft 11 in Weight 229 lb BMI 31.9 Intake Visit Reasons: OV - right hand EMG review, discuss sx Intake Note: Aftab 78 yr old male presents today for his right hand EMG review. Patient mentioned he is having CTS in his pinky which is constant. States he would like to discuss surgical intervention. IMPRESSION: 1. This is an abnormal study. 2. There is electrodiagnostic evidence for right moderate-severe median neuropathy at the wrist, consistent with carpal tunnel syndrome. 3. There is electrodiagnostic evidence for right ulnar neuropathy at the elbow. 4. There is no electrodiagnostic evidence for brachial plexopathy or cervical radiculopathy. Allergies No Known Allergies Allergy (Verified 07/19/24 08:24) HPI HPI OV - right hand EMG review, discuss sx: Details: Aftab is a 78 year old right hand dominant man who presents for a NCS review of his right hand numbness. He complains of numbness primarily in his middle, ring, and small fingers. Symptoms intermittent, but daily, constant in his small finger, worse at night. This has been present for ~3 months, since he had an accident with a power tool at his home. He says he injured his small finger and was forced to twist his arm harshly. 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 He denies any numbness in the thumb & index finger at this time. He denies any numbness in his left hand. He reports a Hx of trigger finger injections in the past, and denies any locking or catching at this time. He has a Hx of an [facility], [facility], and Thyroid cancer, S/P chemo & radiation. He is on Morphine for chronic pain. [facility] Medical History Tinnitus GERD (gastroesophageal reflux disease) Thoracic aortic aneurysm Arthritis Back pain PTSD (post-traumatic stress disorder) Depression HTN (hypertension) Thyroid cancer Surgical History Hx of removal of testicle Hx of inguinal hernia repair History of esophagogastroduodenoscopy (EGD) Hx of colonoscopy Hx of knee surgery Family History Father No problems noted. Mother No problems noted. Social History Alcohol intake: never Patient Tobacco Use Status: Never used Tobacco Current occupational status: retired Current occupation: right hand dominant Review of Systems Const All systems reviewed & are unremarkable except as noted in HPI and below Physical Exam Vital Signs: BMI result Body Mass Index 31.9 Const General: cooperative, healthy appearing and no acute distress Orientation/consciousness: patient oriented x3 HEENT Head: Yes normocephalic and Yes atraumatic Eyes EOM: EOMs intact bilaterally Resp Effort & Inspection: normal respiratory effort and able to speak in complete sentences Cardio Jugular venous distension: no JVD Skin General skin exam: turgor normal Rashes: no rashes Neuro General: patient oriented x3 Extrem Other: Evaluation of Right Upper Extremity: The patient is alert, oriented, and in no acute distress Neuro: Median, Ulnar, Radial nerves motor and sensory intact except for dense numbness in the ulnar nerve distribution of the fingers and dorsal ulnar aspect of the hand. Normal sensation in the median nerve distribution No thenar or intrinsic wasting Good APB muscle belly firing and good finger cross Vascular: Cap refill brisk ROM: He can make a fist and extend all his digits No locking or catching Some arthritic changes in all digits, particularly the PIP joints Skin: No lacerations or abrasions. General: No Ecchymosis. No Erythema or evidence of infection. Nerve Conduction Study: Right-Side only IMPRESSION: 1. This is an abnormal study. 2. There is electrodiagnostic evidence for right moderate-severe median neuropathy at the wrist, consistent with carpal tunnel syndrome. 3. There is electrodiagnostic evidence for right ulnar neuropathy at the elbow. 4. There is no electrodiagnostic evidence for brachial plexopathy or cervical radiculopathy. Qiana Cantu MD, AISSATOU 06/30/24 Psych Appearance: grossly normal Affect: normal affect Attitude: cooperative Assessment & Plan Assessment & Plan (1) Carpal tunnel syndrome of right wrist: Code(s): G56.01 - Carpal tunnel syndrome, right upper limb Category: Medical (2) Cubital tunnel syndrome on right: Code(s): G56.21 - Lesion of ulnar nerve, right upper limb Category: Medical (3) Chronic, continuous use of opioids: Comment: PRESCRIPTION MORPHINE FOR CHRONIC PAIN Code(s): F11.90 - Opioid use, unspecified, uncomplicated Category: Medical Plan Assessment & Plan: 1. Right cubital tunnel syndrome With dense numbness This is his primary complaint 2. Right carpal tunnel syndrome, moderate-severe Intermittent numbness in his middle finger I educated him about these conditions I discussed operative and non-operative treatment options The patient would like to proceed with surgery The risks and benefits of operative treatment were discussed with the patient and the patient wishes to proceed with surgery. These risks include, but are not limited to risk of damage to blood vessels, nerves, tendons, infection, recurrence, incomplete relief of preoperative symptoms, persistent pain, possible need for further surgery and the risks associated with regional blocks and anesthesia. The plan is to take the patient to the operating room sometime in the next few weeks for the following procedures: 1. Right carpal tunnel release, under general 2. Right cubital tunnel release, under general All of the preoperative paperwork including the consent was reviewed today. All the patient's questions were answered. The patient understands that they will be contacted by our quality improvement specialist soon to schedule this procedure He denies Diabetes, blood thinners, asthma, lung, kidney issues He has a Hx of an aortic aneurysm & cancer, in remission S/P chemotherapy & radiation. He is on Morphine for chronic pain. Scribed for Mami Fischer MD by Giovanni Dunn, medical case manager, on 07/19/24 at 9:05 AM, EST. Coding Level of Care Code New Pt Level 4 (64622) Diagnoses Carpal tunnel syndrome of right wrist G56.01 Cubital tunnel syndrome on right G56.21 Chronic, continuous use of opioids F11.90
== END 2024-07-19 09:19 | disposition home or self-care (01) ==
PROVIDERS: Visit Provider Orthopaedic Surgery
DX: G56.01 Carpal tunnel syndrome, right upper limb (principal); G56.21 Lesion of ulnar nerve, right upper limb; F11.90 Opioid use, unspecified, uncomplicated
CPT/HCPCS: 99204

== ENCOUNTER → 2024-07-19 08:07 | Outpatient (BNVA) | payer OTHER, SELFPAY | PROVIDERS: Visit Provider Orthopaedic Surgery | DX: G56.01 Carpal tunnel syndrome, right upper limb (principal); G56.21 Lesion of ulnar nerve, right upper limb; F11.90 Opioid use, unspecified, uncomplicated | CPT/HCPCS: 99202 ==

== ENCOUNTER 2024-09-08 09:38 | Outpatient (AMB) | payer OTHER, SELFPAY ==
[2024-09-08 09:42] VITALS: BP 152/73; PULSE 56; BMI 32.8
--- NOTE | 2024-09-08 09:42 | A.OFFVIS_ITS ---
Vital Signs 09/08/24 09:42 Height 5 ft 11 in Weight 235 lb BMI 32.8 BP 152/73 H Blood Pressure Location Rt brachial Position Sitting Pulse 56 Intake Visit Reasons: Gerd/[place] screening consult Intake Note: Aftab presents in follow up of GERD and for pre colonoscopy consult. CC: Patient c/o a lot of gas, abdominal bloating and pain, and chocking sometimes because his throat is very dry ever since he had his thyroid removed. 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 Flaherty per record. Code(s): D12.6 - Benign neoplasm of colon, unspecified Plan: He tolerated the procedure well. I explained that we did not find any polyps but given his history of past polyps we will meet again in 5 years and depending on the state of his health decide if he needs continued screenings. I explained how this is decided in terms of 10 year mortality, and as long as he is healthy he is quite agreeable to this. His bowels returned to normal without being irritated by the prep. He is quite happy with the service he received. He tells me that his GERD completely resolved after his thyroid surgery so he is no longer on meds and no longer in need of any ongoing services from our department. I will put him on a recall list to remind him to revisit this and he is agreeable. ROV prn (2) GERD (gastroesophageal reflux disease): Comment: resolved after thyroid cancer surgery Code(s): K21.9 - Gastro-esophageal reflux disease without esophagitis PMX Bilateral carpal tunnel syndrome Osteoarthritis of the shoulder Hypothyroid Hypertension High cholesterol Thoracic aortic aneurysm Hard of hearing Depression PTSD Lumbar degenerative disc disease History of T12 compression fracture History of esophageal papilloma Open-angle glaucoma GERD Chronic pain syndrome/chronic use of opioids - no longer History of tubular adenoma History thyroid cancer * SURGICAL HISTORY Thyroidectomy Left orchiectomy Inguinal hernia repair Colonoscopy-2014 Lopez EGD-2019 [facility]= benign esophageal papilloma but active esophagitis of the GE junction with no Faulkner's Knee surgery bilater TKR * ALLERGIES: NKDA * [employer] LABS: NONE IN OUR SYSTEM SINCE 2021 TODAYS VISIT (he served in the [employer]!) He has had 4 prior colonoscopies. The last we have on record 2017. He thought he had a colonoscopy 5 years ago but that may have just been the EGD that was performed in 2019. He denies any cardiac or respiratory problems. There are no prior problems with anesthesia or sedation. There are no ID problems. He has dysphagia r/t post radiation therapy he has seen speech and hearing for swallowing hygiene, needs water to pass dry food. There is no known family history of colon cancer or polyps but then again he had a tubular adenoma on a past exam. [facility] Medical History (Updated 09/08/24 @ 11:10 by HIRAM Hernandez) Chronic, continuous use of opioids Tinnitus GERD (gastroesophageal reflux disease) Thoracic aortic aneurysm Arthritis Back pain PTSD (post-traumatic stress disorder) Depression HTN (hypertension) Thyroid cancer Surgical History H/O thyroidectomy Hx of removal of testicle Hx of inguinal hernia repair History of esophagogastroduodenoscopy (EGD) Hx of colonoscopy Hx of knee surgery Family History Father No problems noted. Mother No problems noted. Social History Alcohol intake: never Patient Tobacco Use Status: Never used Tobacco Current occupational status: retired Current occupation: right hand dominant Review of Systems Const Denies fatigue, Denies fever(s), Denies night sweats, Denies poor appetite and Denies weight loss Eyes Details: glasses Reports requires corrective lenses ENT Reports Normal hearing present, Denies dental pain, Reports dysphagia, Denies hearing loss, Denies mouth pain, Denies odynophagia, Denies throat swelling, Denies tongue swelling and Reports other (Dentition adequate) Card Reports no additional complaints Resp Reports no additional complaints GI Details: Denies abdominal pain, Denies melena, Denies bloating, Denies hematochezia, Denies constipation, Denies GI cramping, Reports dysphagia, Denies excessive flatus, Denies early satiety, Denies heartburn, Denies diarrhea, Denies nausea, Denies odynophagia, Denies vomiting and Denies hematemesis Musc Reports muscle weakness (Right arm status post injury) Skin/Breast Denies pruritus, Denies lesions, Denies rash and Denies jaundice Neuro Reports Normal hearing present, Denies Abnormal speech present and Reports paresthesias (Right arm question ulnar entrapment) Psych Reports anxiety Endo Denies fatigue Aller/Immun Denies throat swelling and Denies tongue swelling Physical Exam Vital Signs: Last Vital Signs Pulse 56 09/08/24 09:42 BP 152/73 H 09/08/24 09:42 BMI result Body Mass Index 32.8 Const General: cooperative, no acute distress, well developed and well groomed Nutritional Appearance: well nourished and obese centrally obese Orientation/consciousness: oriented to person, oriented to place and oriented to time Limitations: No language barrier HEENT Head: Yes normocephalic and Yes atraumatic Eyes General: appearance normal, both eyes and all related structures Pupils: Equal, round and reactive pupils present Neck Neck: Yes normal visual inspection and Yes no lymphadenopathy Thyroid: Thyroid normal Resp Effort & Inspection: normal respiratory effort and able to speak in complete sentences Auscultation: clear to auscultation bilaterally Cardio Rate: regular rate Rhythm: regular rhythm Heart sounds: Normal, physiologic split S2 sound present Peripheral pulses: radial pulses present and posterior tibial pulses present GI Inspection: No distended, No Abdominal panniculus present and Yes obesity Palpation (GI): Soft to palpation, nontender, no guarding, not rigid and No hepatosplenomegaly present Percussion: Yes normal to percussion Auscultation: normal bowel sounds Rectal Exam - Male: Yes deferred Skin General skin exam: no rashes or lesions noted, turgor normal, skin not dry, no jaundice, No spider nevi and no striae Rashes: no rashes Nails: normal Neuro General: oriented to person, oriented to place and oriented to time Cranial nerves: Yes Equal, round and reactive pupils present and Yes Normal hearing present Speech: No Abnormal speech present 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 General: Yes normal to inspection, No clubbing, No cyanosis and No edema Psych Appearance: grossly normal and well kempt Mental Status: mental status grossly normal Speech and movement: Normal speech and movement present Affect: normal affect Attitude: cooperative Thought process: Normal thought process present and not confabulating Thought content: Normal thought content present Insight: Good insight present (Psych) Judgement: Good judgement present (Psych) Assessment & Plan Assessment & Plan (1) Pre-op examination: Code(s): Z01.818 - Encounter for other preprocedural examination Category: Medical (2) GERD (gastroesophageal reflux disease): Comment: resolved after thyroid cancer surgery Code(s): K21.9 - Gastro-esophageal reflux disease without esophagitis Category: Medical (3) Tubular adenoma of colon: Comment: On remote past scope by Dr. Flaherty per record. Code(s): D12.6 - Benign neoplasm of colon, unspecified Category: Medical (4) Dysphagia: Comment: Of solid foods, status post radiation therapy for thyroid cancer Code(s): R13.10 - Dysphagia, unspecified Category: Medical Plan (he served in the [employer]!) He has had 4 prior colonoscopies. The last we have on record 2017. He thought he had a colonoscopy 5 years ago but that may have just been the EGD that was performed in 2019. He denies any cardiac or respiratory problems. There are no prior problems with anesthesia or sedation. There are no ID problems. He has dysphagia r/t post radiation therapy he has seen speech and hearing for swallowing hygiene, needs water to pass dry food. There is no known family history of colon cancer or polyps but then again he had a tubular adenoma on a past exam. Orders: Orders Complete Blood Count Auto Diff Today Z01.818 - Encounter for other preprocedural examination EGD/[place] Combo - GI Use Only Today Z01.818 - Encounter for other preprocedural examination Comprehensive Met. Panel Today Z01.818 - Encounter for other preprocedural examination Medications: New peg 3350-electrolytes 236-22.74-6.74 -5.86 gram (Golytely) until fecal effluent is clear; do not exceed a total volume of 2,000 mL 240 mL PO Q10M 4,000 mL 0RF 1 day Z12.11 - Encounter for screening for malignant neoplasm of colon bisacodyl (Dulcolax (bisacodyl)) 10 mg (2 x 5 mg) PO BEDTIME 4 tabs 0RF 2 days Coding Level of Care Code New Pt Level 3 (18063) Diagnoses Pre-op examination Z01.818 GERD (gastroesophageal reflux disease) K21.9 Tubular adenoma of colon D12.6 Dysphagia R13.10
== END 2024-09-08 10:44 | disposition home or self-care (01) ==
LOC: HO.HGI 09:39
PROVIDERS: Visit Provider Nurse Practitioner
DX: K21.9 Gastro-esophageal reflux disease without esophagitis (principal); R13.10 Dysphagia, unspecified; Z12.11 Encounter for screening for malignant neoplasm of colon; Z86.0101 Personal history of adenomatous and serrated colon polyps
CPT/HCPCS: 99213

== ENCOUNTER 2024-09-08 09:38 | Outpatient (REF) | payer OTHER, SELFPAY ==
[2024-09-08 11:06] LABS: MANUAL DIFF FLAG NO
[2024-09-08 11:52] LABS: Basophils Percent Auto 0.5 % (0-2); Eosinophils Absolute Auto 0.2 X10*3/uL (0.0-0.4); Eosinophils Percent Auto 3.1 % (0-4); Hematocrit 43.1 % (42.0-52.0); Hemoglobin 14.4 g/dl (14.0-18.0); Imm Gran Abs Auto 0.04 X10*3/uL (0.00-0.03); Imm Gran Pct Auto 0.6 % (0.0-0.4); Lymphocytes Absolute Auto 1.2 X10*3/uL (1.2-4.9); Lymphocytes Percent Auto 19.2 % (20-40); Mean Corpuscular HGB Conc 33.4 g/dl (31.0-36.0); Mean Corpuscular Hemoglobin 29.4 pg (27.0-33.0); Mean Corpuscular Volume 88.1 fL (80.0-98.0); Mean Platelet Volume 10.1 fL (9.4-12.4); Monocytes Absolute Auto 0.7 X10*3/uL (0.1-1.2); Monocytes Percent Auto 10.6 % (2-11); Neutrophils Absolute Auto 4.1 x10*3/uL (2.0-8.3); Platelet Count 232 X10*3/uL (160-400); Red Blood Count 4.89 X10*6/uL (4.60-5.80); Red Cell Distribution Width 13.5 % (11.0-16.0); White Blood Count 6.2 X10*3/uL (4.8-10.8)
[2024-09-08 12:30] LABS: Alanine Aminotransferase 7 U/L (0-40); Albumin Level 4.2 g/dL (3.5-5.0); Alkaline Phosphatase 86 U/L (39-117); Anion Gap 12 (12-20); Aspartate Amino Transferase 30 U/L (5-37); Bilirubin Total 1.4 mg/dL (0.0-1.0); Blood Urea Nitrogen 22 mg/dL (9-16); Carbon Dioxide 29 mmol/L (22-29); Chloride 105 mmol/L (96-108); Estimated Glomerular Filt Rate > 60; Glucose Random 109 mg/dL (60-115); Potassium 3.6 mmol/L (3.3-5.1); Sodium 142 mmol/L (135-145); Total Protein 7.2 g/dL (6.5-8.0)
== END 2024-09-08 09:39 | disposition home or self-care (01) ==
LOC: HO.LAB 09:38
PROVIDERS: PCP Internal Medicine; Visit Provider Nurse Practitioner
DX: Z01.818 Encounter for other preprocedural examination (principal)
CPT/HCPCS: 36415; 80053; 85025; 99212

== ENCOUNTER 2024-10-05 09:14 | Outpatient (AMB) | payer OTHER, SELFPAY ==
[2024-10-05 09:29] VITALS: BMI 32.8
--- NOTE | 2024-10-05 09:29 | A.OFFVIS_ITS ---
Vital Signs 10/05/24 09:29 Height 5 ft 11 in Weight 235 lb BMI 32.8 Intake Visit Reasons: Pre-Rt Cubital, CTR 10/13/24 Intake Note: Aftab 79 yr old male presents today for a his pre op visit for his right hand cubital tunnel release that is scheduled for 10/13/[address] Fischer. Consents have been reviewed and sign. Allergies No Known Allergies Allergy (Verified 10/05/24 09:31) HPI HPI Pre-Rt Cubital, CTR 10/13/24: Details: Aftab is a 79 year old right hand dominant man who returns to discuss his right carpal & cubiutal tunnel sydrome. He complains of numbness primarily in his middle, ring, and small fingers. Symptoms intermittent, but daily, constant in his small finger, worse at night. This has been present for ~6 months, since he had an accident with a power tool at his home. He says he injured his small finger and was forced to twist his arm harshly. 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 He denies numbness in the thumb & index finger at this time. He denies any numbness in his left hand. He reports a Hx of trigger finger injections in the past, and denies any locking or catching at this time. He has a Hx of an [facility], [facility], and Thyroid cancer, S/P chemo & radiation. He is on Morphine for chronic pain. [facility] Medical History (Updated 09/08/24 @ 11:10 by HIRAM Hernandez) Chronic, continuous use of opioids Tinnitus GERD (gastroesophageal reflux disease) Thoracic aortic aneurysm Arthritis Back pain PTSD (post-traumatic stress disorder) Depression HTN (hypertension) Thyroid cancer Surgical History H/O thyroidectomy Hx of removal of testicle Hx of inguinal hernia repair History of esophagogastroduodenoscopy (EGD) Hx of colonoscopy Hx of knee surgery Family History Father No problems noted. Mother No problems noted. Social History Alcohol intake: never Patient Tobacco Use Status: Never used Tobacco Current occupational status: retired Current occupation: right hand dominant Review of Systems Const All systems reviewed & are unremarkable except as noted in HPI and below Physical Exam Vital Signs: BMI result Body Mass Index 32.8 Const General: no acute distress and alert Orientation/consciousness: patient oriented x3 Neuro General: patient oriented x3 Extrem Other: Evaluation of Right Upper Extremity: The patient is alert, oriented, and in no acute distress Neuro: Median, Ulnar, Radial nerves motor and sensory intact except for dense numbness in the ulnar nerve distribution of the fingers and dorsal ulnar aspect of the hand. Normal sensation in the median nerve distribution No thenar or intrinsic wasting Good APB muscle belly firing and good finger cross Some weakness with Small finger ADduction Vascular: Cap refill brisk ROM: He can make a fist and extend all his digits No locking or catching Some arthritic changes in all digits, particularly the PIP joints Nerve Conduction Study: Right-Side only IMPRESSION: 1. This is an abnormal study. 2. There is electrodiagnostic evidence for right moderate-severe median neuropathy at the wrist, consistent with carpal tunnel syndrome. 3. There is electrodiagnostic evidence for right ulnar neuropathy at the elbow. 4. There is no electrodiagnostic evidence for brachial plexopathy or cervical radiculopathy. Qiana Cantu MD, AISSATOU 06/30/24 Psych Appearance: grossly normal Affect: normal affect Attitude: cooperative Assessment & Plan Assessment & Plan (1) Carpal tunnel syndrome of right wrist: Code(s): G56.01 - Carpal tunnel syndrome, right upper limb Category: Medical (2) Cubital tunnel syndrome on right: Code(s): G56.21 - Lesion of ulnar nerve, right upper limb Category: Medical Plan Assessment & Plan: 1. Right cubital tunnel syndrome With dense numbness This is his primary complaint 2. Right carpal tunnel syndrome, moderate-severe With dense numbness in his middle finger I educated him about these conditions I discussed operative and non-operative treatment options The patient would like to proceed with surgery The risks and benefits of operative treatment were discussed with the patient and the patient wishes to proceed with surgery. These risks include, but are not limited to risk of damage to blood vessels, nerves, tendons, infection, recurrence, incomplete relief of preoperative symptoms, persistent pain, possible need for further surgery and the risks associated with regional blocks and anesthesia. The plan is to take the patient to the operating room sometime on 10/13/24 for the following procedures: 1. Right carpal tunnel release, under general 2. Right cubital tunnel release, under general All of the preoperative paperwork including the consent was reviewed today. All the patient's questions were answered. The patient understands that they will be contacted by our certified athletic trainer soon to schedule this procedure He denies Diabetes, blood thinners, asthma, lung, kidney issues He has a Hx of an aortic aneurysm & cancer, in remission S/P chemotherapy & radiation. He is on Morphine for chronic pain. Scribed for Mami Fischer MD by Giovanni Dunn, medical research scientist, on 10/05/24 at 9:45 AM, EST. Coding Level of Care Code Est Pt Level 4 (84643) Diagnoses Carpal tunnel syndrome of right wrist G56.01 Cubital tunnel syndrome on right G56.21
== END 2024-10-05 09:52 | disposition home or self-care (01) ==
LOC: HO.HOS 09:15
PROVIDERS: Visit Provider Orthopaedic Surgery
DX: G56.01 Carpal tunnel syndrome, right upper limb (principal); G56.21 Lesion of ulnar nerve, right upper limb
CPT/HCPCS: 99024

== ENCOUNTER → 2024-10-05 09:14 | Outpatient (BNVA) | payer OTHER, SELFPAY | PROVIDERS: Visit Provider Orthopaedic Surgery | DX: G56.01 Carpal tunnel syndrome, right upper limb (principal); G56.21 Lesion of ulnar nerve, right upper limb | CPT/HCPCS: 99212 ==

== ENCOUNTER 2024-10-13 05:43 | Day surgery (SDC) | payer OTHER, SELFPAY ==
[2024-10-11 07:39] VITALS: BMI 32.8
--- NOTE | 2024-10-11 14:11 | HO.ANESPROP2 ---
HPI - Anesthesia Eval Consult details Narrative: 79yo M for Right Cubital Tunnel Release, Carpal Tunnel Release Medically optimized per PCP at [place] TAA @ 4.2cm - stable since 2017 Chronic opioids PMFSH Active Problems Active Problems: All Active Problems Dysphagia (Acute) Pre-op examination (Acute) Cubital tunnel syndrome on right (Acute) Carpal tunnel syndrome of right wrist (Acute) Primary osteoarthritis, right shoulder (Acute) Osteoarthritis of right shoulder (Acute) Right upper extremity numbness (Acute) Hypothyroidism associated with surgical procedure (Acute) Hypertension (Acute) High cholesterol (Acute) Thoracic aortic aneurysm (Acute) Hard of hearing (Acute) Depression (Acute) PTSD (post-traumatic stress disorder) (Acute) Lumbar degenerative disc disease (Acute) T12 compression fracture (Acute) Papilloma (Acute) Open-angle glaucoma (Acute) GERD (gastroesophageal reflux disease) (Acute) Chronic low back pain (Acute) Tubular adenoma of colon (Acute) Past Medical History Medical History Bradycardia Tinnitus GERD (gastroesophageal reflux disease) Thoracic aortic aneurysm Arthritis Back pain PTSD (post-traumatic stress disorder) Depression HTN (hypertension) Chronic, continuous use of opioids Thyroid cancer Family History Family History Father No problems noted. Mother No problems noted. Surgical History Surgical History H/O thyroidectomy Hx of removal of testicle Hx of inguinal hernia repair History of esophagogastroduodenoscopy (EGD) Hx of colonoscopy Hx of knee surgery History of Problems with Anesthesia: No Social History Social History Alcohol intake: never Patient Tobacco Use Status: Never used Tobacco Current occupational status: retired Current occupation: right hand dominant Meds Allergies Allergy/AdvReac Type Severity Reaction Status Date / Time No Known Allergies Allergy Verified 10/25/24 15:05 Home Medications ?Medication ?Instructions ?Recorded ?Confirmed ?Last Taken ?Type amlodipine 2.5 mg tablet 2.5 mg PO DAILY 01/14/22 10/13/24 Unknown History aspirin 81 mg tablet,delayed 81 mg PO DAILY 01/14/22 10/13/24 10/12/24 History release atorvastatin 40 mg tablet 40 mg PO DAILY 01/14/22 10/13/24 Unknown History dorzolamide 2 % eye drops 1 drp ophthalmic (eye) TID 01/14/22 10/13/24 Unknown History gabapentin 300 mg capsule 300 mg PO DAILY 01/14/22 10/13/24 Unknown History hydrochlorothiazide 25 mg tablet 25 mg PO DAILY 01/14/22 10/13/24 Unknown History latanoprost 0.005 % eye drops 1 drp ophthalmic (eye) DAILY 01/14/22 10/13/24 Unknown History levothyroxine 125 mcg capsule 150 mcg PO DAILY 01/14/22 10/13/24 Unknown History magnesium oxide 420 mg tablet 420 mg PO BEDTIME 01/14/22 10/13/24 Unknown History sertraline 25 mg tablet 25 mg PO DAILY 01/14/22 10/13/24 Unknown History simethicone 80 mg chewable tablet 80 mg PO BEDTIME 01/14/22 10/13/24 Unknown History (Gas Relief (simethicone)) terazosin 2 mg capsule 2 mg PO DAILY 01/14/22 10/13/24 Unknown History trazodone 50 mg tablet 25 mg PO DAILY 01/14/22 10/13/24 Unknown History potassium chloride 20 mEq/15 mL 20 meq PO DAILY 05/08/22 10/13/24 Unknown History oral liquid Exam Height,Weight and Vital Signs: Height 5 ft 11 in Weight 106.594 kg Pertinent Lab Results Pertinent Lab Results: Laboratory Tests 09/08/24 11:04 WBC 6.2 Hgb 14.4 Hct 43.1 Plt Count 232 Sodium 142 Potassium 3.6 Chloride 105 Carbon Dioxide 29 BUN 22 H Creatinine 0.90 Assessment and Plan Assessment Anesthesia Assessment: Chart Reviewed Final Anesthetic Review History of Problems with Anesthesia: No
[2024-10-13 05:53] VITALS: BP 143/46; PULSE 48; RESP 18; TEMP 36.9; O2SAT 96; BMI 33.0
[2024-10-13] MEDS: Lactated Ringers 1,000 ML 100 ML IVCONT (06:20)
--- NOTE | 2024-10-13 07:23 | P.CONAN_ITS ---
HPI - Anesthesia Eval Consult details Narrative: 79 yo M presenting for right CTR and right cubital tunnel release. [facility] Active Problems Active Problems: All Active Problems Dysphagia (Acute) Pre-op examination (Acute) Cubital tunnel syndrome on right (Acute) Carpal tunnel syndrome of right wrist (Acute) Primary osteoarthritis, right shoulder (Acute) Osteoarthritis of right shoulder (Acute) Right upper extremity numbness (Acute) Tubular adenoma of colon (Acute) Chronic low back pain (Acute) GERD (gastroesophageal reflux disease) (Acute) Open-angle glaucoma (Acute) Papilloma (Acute) T12 compression fracture (Acute) Lumbar degenerative disc disease (Acute) PTSD (post-traumatic stress disorder) (Acute) Depression (Acute) Hard of hearing (Acute) Thoracic aortic aneurysm (Acute) High cholesterol (Acute) Hypertension (Acute) Hypothyroidism associated with surgical procedure (Acute) Past Medical History Medical History Bradycardia Tinnitus GERD (gastroesophageal reflux disease) Thoracic aortic aneurysm Arthritis Back pain PTSD (post-traumatic stress disorder) Depression HTN (hypertension) Chronic, continuous use of opioids Thyroid cancer Family History Family History Father No problems noted. Mother No problems noted. Surgical History Surgical History H/O thyroidectomy Hx of removal of testicle Hx of inguinal hernia repair History of esophagogastroduodenoscopy (EGD) Hx of colonoscopy Hx of knee surgery History of Problems with Anesthesia: No Social History Social History Alcohol intake: never Patient Tobacco Use Status: Never used Tobacco Have you been hit, kicked, punched, or otherwise hurt by someone within the past year? If so, by whom?: No Are you DNR?: No Advance Directives: No Advance Directives Information Provided: Yes Current occupational status: retired Current occupation: right hand dominant Meds Allergies Allergy/AdvReac Type Severity Reaction Status Date / Time No Known Allergies Allergy Verified 10/05/24 09:31 Active Medications: Current Medications Lactated Ringer's (Lr) 1,000 mls @ 100 mls/hr IVCONT .Q10H [place] Last Admin: 10/13/24 06:20 Dose: 100 mls/hr Home Medications ?Medication ?Instructions ?Recorded ?Confirmed ?Last Taken ?Type amlodipine 2.5 mg tablet 2.5 mg PO DAILY 01/14/22 10/13/24 Unknown History aspirin 81 mg tablet,delayed 81 mg PO DAILY 01/14/22 10/13/24 10/12/24 History release atorvastatin 40 mg tablet 40 mg PO DAILY 01/14/22 10/13/24 Unknown History dorzolamide 2 % eye drops 1 drp ophthalmic (eye) TID 01/14/22 10/13/24 Unknown History gabapentin 300 mg capsule 300 mg PO DAILY 01/14/22 10/13/24 Unknown History hydrochlorothiazide 25 mg tablet 25 mg PO DAILY 01/14/22 10/13/24 Unknown History latanoprost 0.005 % eye drops 1 drp ophthalmic (eye) DAILY 01/14/22 10/13/24 Unknown History levothyroxine 125 mcg capsule 150 mcg PO DAILY 01/14/22 10/13/24 Unknown History magnesium oxide 420 mg tablet 420 mg PO BEDTIME 01/14/22 10/13/24 Unknown History sertraline 25 mg tablet 25 mg PO DAILY 01/14/22 10/13/24 Unknown History simethicone 80 mg chewable tablet 80 mg PO BEDTIME 01/14/22 10/13/24 Unknown History (Gas Relief (simethicone)) terazosin 2 mg capsule 2 mg PO DAILY 01/14/22 10/13/24 Unknown History trazodone 50 mg tablet 25 mg PO DAILY 01/14/22 10/13/24 Unknown History potassium chloride 20 mEq/15 mL 20 meq PO DAILY 05/08/22 10/13/24 Unknown History oral liquid Exam Height,Weight and Vital Signs: Height 5 ft 11 in Weight 107.2 kg Last Vital Signs Temp 98.5 F 10/13/24 05:53 Pulse 48 L 10/13/24 05:53 Resp 18 10/13/24 05:53 BP 143/46 H 10/13/24 05:53 Pulse Ox 96 10/13/24 05:53 O2 Del Method Room Air 10/13/24 05:53 Airway Mallampati Class: II TM Dist: >3cm Neck ROM: Full Heart: rrr Lungs: ctaproceed Assessment and Plan Assessment Anesthesia Assessment: Anesthesia Plan Discussed and Chart Reviewed Final Anesthetic Review History of Problems with Anesthesia: No NPO: Yes ASA Class: II Final Preanesthetic Review: No Changes in Pt Med Stat, Meds/Allgs Chart Reviewed, Consent Obtained/Reviewed and Anes Risks/Benef Reviewed Patient Risk: Low Procedure Risk: Low Anesthetic Plan Anesthetic Plan: GA and Agree w/ Assess. and Plan Disposition: Standard PACU
--- NOTE | 2024-10-13 07:40 | MHC.SHP ---
Pre-Procedural Eval Section A - 24 Hr Update-Section A only Date of Service: 10/13/24 The patient is an INPATIENT: No Changes since office visit: No Cold of Flu in the past 2 weeks, No New Medical Problems, No Changes in Medication and No Patient answered all questions The patient has been examined within 24 hours of the surgical procedure. The History & Physical has been completed within 30 days and I have reviewed it.: Yes Section B - Complete if H&P > 30 days Chief Complaint: Lesion of ulnar nerve, right upper limb Allergies: Allergies Allergy/AdvReac Type Severity Reaction Status Date / Time No Known Allergies Allergy Verified 10/05/24 09:31 Plan Diagnosis/Plan: Unchanged I have reviewed the history and physical and performed a pertinent physical examination on my patient. No changes have occurred unless specified. Time Spent With Patient Time: Total time managing care of this patient today ____ minutes.
--- NOTE | 2024-10-13 07:40 | W.PM.OPN ---
Operative Note Operative Note Date of Service: 10/13/24 Narrative: Operative Note Narrative: Preop diagnosis: 1. Left Cubital tunnel syndrome 2. Left carpal tunnel syndrome Postop diagnosis: Same Procedure: 1. Left Cubital Tunnel Release 2. Left carpal tunnel release Surgeon: Mami Fischer MD [employer] Worker: None Anesthesia: General Anesthesia Findings: Thickening and fibrosis about the ulnar nerve at the cubital tunnel, with narrowing of the nerve as it passed between the 2 heads of the FCU muscle bellies Implants: none Tourniquet time: 38 minutes EBL: 5.0 ml Specimen: none Drains: None Complications: None Disposition: Brought to the recovery room in stable condition Plan: Follow-up in 10-14 days for wound check, and suture removal Indications: The patient is 79 years old with left cubital tunnel syndrome and left carpal tunnel syndrome . The risks and benefits of operative treatment, including but not limited to risk of damage to blood vessels, nerves, tendons, infection, recurrence, persistent pain or numbness, incomplete resolution of preoperative symptoms, or need for further surgery were discussed with the patient and they wished to proceed with surgery. Procedure: Once consent was obtained patient was brought back to the operating suite and placed in the operating table in a supine position. Perioperative antibiotics and anesthesia was administered by the anesthesia team. The limb was prepped and draped in a standard surgical fashion, and a sterile tourniquet applied to the proximal aspect of the left upper extremity. The limb was elevated exsanguinated with Esmarch bandage and the tourniquet inflated to 250 mm of mercury for a total tourniquet time of 38 minutes. Once assured that we had a good block, a 2.0 cm longitudinal incision was made centered over the left carpal tunnel. The incision was made through the skin to the subcutaneous tissues using a #15 blade. Dissection was made down to the level of the transverse carpal ligament with care being taken to protect the palmar cutaneous nerve. Once the transverse carpal ligament was clearly visualized, a longitudinal incision was made in the transverse carpal ligament 1st using a #15 blade, then using tenotomy scissors under direct visualization. Care was taken to look for and protect the motor branch of the median nerve when seen in this area. Once satisfied with our carpal tunnel release the wound was irrigated with normal saline. A 6 cm gently curved but longitudinally oriented incision was made centered over the cubital tunnel of the left upper extremity. Incision was made through the skin to the subcutaneous tissues using a # 15 Blade. I then dissected down to the level of the medial epicondyle and the cubital tunnel using tenotomy scissors. Care was taken to protect the medial antebrachial cutaneous nerve. The ulnar nerve was identified just posterior to the medial intermuscular septum. The ulnar nerve was released in a proximal to distal direction using tenotomy in iris scissors while directly visualizing and protecting the ulnar nerve. Thickening and fibrosis was appreciated about the ulnar nerve as it passed through the cubital tunnel, with narrowing of the ulnar nerve as it passed between the 2 heads of the FCU.. The ulnar nerve was assessed as I passed the elbow through full flexion and extension and was found to remain stable within its groove. At this point the tourniquet was deflated and hemostasis obtained with a brief period of local pressure and bipolar electrocautery. The wound was copiously irrigated with normal saline. The subcutaneous layer was closed with 4-0 Vicryl suture, and the skin edges were reapproximated with 5-0 nylon suture. The wound was infiltrated with some 0.25% plain Marcaine for postop pain control and sterile dressings were applied. The patient appears to have tolerated the procedure well and with no complications. All digits were well vascularized at the conclusion of the case.
--- NOTE | 2024-10-13 08:40 | HO.ANESPROP2 ---
[facility] Active Problems Active Problems: All Active Problems Dysphagia (Acute) Pre-op examination (Acute) Cubital tunnel syndrome on right (Acute) Carpal tunnel syndrome of right wrist (Acute) Primary osteoarthritis, right shoulder (Acute) Osteoarthritis of right shoulder (Acute) Right upper extremity numbness (Acute) Tubular adenoma of colon (Acute) Chronic low back pain (Acute) GERD (gastroesophageal reflux disease) (Acute) Open-angle glaucoma (Acute) Papilloma (Acute) T12 compression fracture (Acute) Lumbar degenerative disc disease (Acute) PTSD (post-traumatic stress disorder) (Acute) Depression (Acute) Hard of hearing (Acute) Thoracic aortic aneurysm (Acute) High cholesterol (Acute) Hypertension (Acute) Hypothyroidism associated with surgical procedure (Acute) Past Medical History Medical History Bradycardia Tinnitus GERD (gastroesophageal reflux disease) Thoracic aortic aneurysm Arthritis Back pain PTSD (post-traumatic stress disorder) Depression HTN (hypertension) Chronic, continuous use of opioids Thyroid cancer Family History Family History (Reviewed 09/08/24 @ 10:02 by Sabina Greenwood [facility]) Father No problems noted. Mother No problems noted. Family history of problems with anesthesia: No Surgical History Surgical History H/O thyroidectomy Hx of removal of testicle Hx of inguinal hernia repair History of esophagogastroduodenoscopy (EGD) Hx of colonoscopy Hx of knee surgery History of Problems with Anesthesia: No Social History Social History (Reviewed 10/05/24 @ 09:31 by Rolanda Isaac [facility]) Alcohol intake: never Patient Tobacco Use Status: Never used Tobacco Have you been hit, kicked, punched, or otherwise hurt by someone within the past year? If so, by whom?: No Are you DNR?: No Advance Directives: No Advance Directives Information Provided: Yes Current occupational status: retired Current occupation: right hand dominant Meds Allergies Allergy/AdvReac Type Severity Reaction Status Date / Time No Known Allergies Allergy Verified 10/05/24 09:31 Active Medications: Current Medications Fentanyl (Fentanyl Citrate/Pf 100 Mcg/2 Ml Vial) 50 mcg IVPUSH Q5M PRN PRN Reason: Pain, Moderate to Severe (Pain Scale 4-10) Stop: 10/13/24 13:31 Hydromorphone HCl (Hydromorphone Hcl 0.5 Mg/0.5 Ml Syringe) 0.5 mg IVPUSH Q5M PRN PRN Reason: Pain, Moderate to Severe (Pain Scale 4-10) Stop: 10/13/24 13:31 Lactated Ringer's (Lr) 1,000 mls @ 100 mls/hr IVCONT .Q10H [place] Last Admin: 10/13/24 06:20 Dose: 100 mls/hr Naloxone HCl (Naloxone Hcl 0.4 Mg/Ml Vial) 0.04 mg IVPUSH Q5M PRN PRN Reason: Excessive sedation or RR < 8 Ondansetron HCl (Ondansetron Hcl 4 Mg/2 Ml Vial) 4 mg IVPUSH ONCE PRN PRN Reason: Nausea and Vomiting Stop: 10/13/24 13:32 Oxycodone HCl (Oxycodone Hcl Immed Release 5 Mg Tablet) 5 mg PO ONCE PRN PRN Reason: Pain, Moderate(Pain Scale 4-6) if no IV Access Stop: 10/13/24 13:31 Home Medications ?Medication ?Instructions ?Recorded ?Confirmed ?Last Taken ?Type amlodipine 2.5 mg tablet 2.5 mg PO DAILY 01/14/22 10/13/24 Unknown History aspirin 81 mg tablet,delayed 81 mg PO DAILY 01/14/22 10/13/24 10/12/24 History release atorvastatin 40 mg tablet 40 mg PO DAILY 01/14/22 10/13/24 Unknown History dorzolamide 2 % eye drops 1 drp ophthalmic (eye) TID 01/14/22 10/13/24 Unknown History gabapentin 300 mg capsule 300 mg PO DAILY 01/14/22 10/13/24 Unknown History hydrochlorothiazide 25 mg tablet 25 mg PO DAILY 01/14/22 10/13/24 Unknown History latanoprost 0.005 % eye drops 1 drp ophthalmic (eye) DAILY 01/14/22 10/13/24 Unknown History levothyroxine 125 mcg capsule 150 mcg PO DAILY 01/14/22 10/13/24 Unknown History magnesium oxide 420 mg tablet 420 mg PO BEDTIME 01/14/22 10/13/24 Unknown History sertraline 25 mg tablet 25 mg PO DAILY 01/14/22 10/13/24 Unknown History simethicone 80 mg chewable tablet 80 mg PO BEDTIME 01/14/22 10/13/24 Unknown History (Gas Relief (simethicone)) terazosin 2 mg capsule 2 mg PO DAILY 01/14/22 10/13/24 Unknown History trazodone 50 mg tablet 25 mg PO DAILY 01/14/22 10/13/24 Unknown History potassium chloride 20 mEq/15 mL 20 meq PO DAILY 05/08/22 10/13/24 Unknown History oral liquid Exam Height,Weight and Vital Signs: Height 5 ft 11 in Weight 107.2 kg Last Vital Signs Temp 98.5 F 10/13/24 05:53 Pulse 48 L 10/13/24 05:53 Resp 18 10/13/24 05:53 BP 143/46 H 10/13/24 05:53 Pulse Ox 96 10/13/24 05:53 O2 Del Method Room Air 10/13/24 05:53 Airway Mallampati Class: II TM Dist: >3cm Neck ROM: Full Loose/Missing/Broken Teeth: No Heart: rrr Lungs: cta Assessment and Plan Assessment Anesthesia Assessment: Anesthesia Plan Discussed and Chart Reviewed Final Anesthetic Review Family History of Problems with Anesthesia: No History of Problems with Anesthesia: No NPO: Yes ASA Class: II Final Preanesthetic Review: No Changes in Pt Med Stat, Meds/Allgs Chart Reviewed, Consent Obtained/Reviewed and Anes Risks/Benef Reviewed Patient Risk: Low Procedure Risk: Low Anesthetic Plan Anesthetic Plan: GA Disposition: Standard PACU
[2024-10-13 09:22] VITALS: BP 100/56; PULSE 50; RESP 16; TEMP 36.8; O2SAT 100
[2024-10-13 09:27] VITALS: BP 132/64; PULSE 53; RESP 16; O2SAT 95
[2024-10-13 09:32] VITALS: BP 117/51; PULSE 53; RESP 16; O2SAT 95
[2024-10-13 09:37] VITALS: BP 112/46; PULSE 52; RESP 17; O2SAT 95
[2024-10-13 09:52] VITALS: BP 118/54; PULSE 54; RESP 17; TEMP 37; O2SAT 96
== END 2024-10-13 10:23 | disposition home or self-care (01) ==
PROVIDERS: PCP Internal Medicine; Visit Provider Orthopaedic Surgery
PROC: (CPT 64718; principal; 2024-10-13 07:30)
PROC: (CPT 64721; 2024-10-13 07:30)
DX: G56.01 Carpal tunnel syndrome, right upper limb (principal); G56.21 Lesion of ulnar nerve, right upper limb; R20.0 Anesthesia of skin; G89.29 Other chronic pain; M54.9 Dorsalgia, unspecified; Z79.891 Long term (current) use of opiate analgesic; Z87.828 Personal history of other (healed) physical injury and trauma; Z85.850 Personal history of malignant neoplasm of thyroid; Z92.21 Personal history of antineoplastic chemotherapy; Z92.3 Personal history of irradiation; K21.9 Gastro-esophageal reflux disease without esophagitis; I71.20 Thoracic aortic aneurysm, without rupture, unspecified; I10 Essential (primary) hypertension; F32.A Depression, unspecified; Z98.890 Other specified postprocedural states
CPT/HCPCS: 64721; 64718; J0131; J0690; J1100; J2003; J2004; J2250; J2405; J2704; J2795; J3010

== ENCOUNTER → 2024-10-13 05:43 | Outpatient (BNV) | payer OTHER, SELFPAY | PROVIDERS: PCP Internal Medicine; Visit Provider Orthopaedic Surgery | DX: G56.21 Lesion of ulnar nerve, right upper limb (principal); G56.01 Carpal tunnel syndrome, right upper limb | CPT/HCPCS: 64718; 64721 ==

== ENCOUNTER 2024-10-25 14:56 | Outpatient (AMB) | payer OTHER, SELFPAY ==
--- NOTE | 2024-10-25 15:00 | MHC.OFFVIS ---
Intake Visit Reasons: PO RT Cubital/CTR 10/13/24 AR Intake Note: Aftab is a 79 year old - hand dominant male who presents today post-operatively status post right cubital & carpal tunnel release, DOS: 10/13/[address] Fischer. Sutures removed in office today and steri strips applied. Allergies No Known Allergies Allergy (Verified 10/25/24 15:05) HPI HPI PO RT Cubital/CTR 10/13/24 AR: Details: Aftab is a 79 year old right hand dominant male who presents today post-operatively status post right cubital & carpal tunnel release, DOS: 10/13/[address] Fischer. Patient reports some minor disc foot around the incision site on the medial right elbow, but other than that has no concerns. Patient does report that he is still experiencing numbness and tingling, but as he was experiencing dense numbness prior to surgery, he expected this to be the case. Sutures removed in office today and steri strips applied. [facility] Medical History Bradycardia Tinnitus GERD (gastroesophageal reflux disease) Thoracic aortic aneurysm Arthritis Back pain PTSD (post-traumatic stress disorder) Depression HTN (hypertension) Chronic, continuous use of opioids Thyroid cancer Surgical History H/O thyroidectomy Hx of removal of testicle Hx of inguinal hernia repair History of esophagogastroduodenoscopy (EGD) Hx of colonoscopy Hx of knee surgery Family History Father No problems noted. Mother No problems noted. Social History Alcohol intake: never Patient Tobacco Use Status: Never used Tobacco Current occupational status: retired Current occupation: right hand dominant Review of Systems Const All systems reviewed & are unremarkable except as noted in HPI and below Physical Exam Const General: no acute distress and alert Orientation/consciousness: patient oriented x3 Neuro General: patient oriented x3 Extrem Other: Evaluation of Right Upper Extremity: The patient is alert, oriented, and in no acute distress Neuro: Median, Ulnar, Radial nerves motor and sensory intact except for dense numbness in the ulnar nerve distribution of the fingers and dorsal ulnar aspect of the hand. Normal sensation in the median nerve distribution No thenar or intrinsic wasting Good APB muscle belly firing and good finger cross Some weakness with Small finger ADduction Vascular: Cap refill brisk ROM: He can make a fist and extend all his digits No locking or catching Some arthritic changes in all digits, particularly the PIP joints Skin: There is some slight redness around the incision site on the medial aspect of the patient's right elbow Incisions on right elbow and right wrist are well approximated and well healing No evidence of redness around incision on volar right wrist Psych Appearance: grossly normal Affect: normal affect Attitude: cooperative Assessment & Plan Assessment & Plan (1) Cubital tunnel syndrome on right: Code(s): G56.21 - Lesion of ulnar nerve, right upper limb Category: Medical (2) Carpal tunnel syndrome of right wrist: Code(s): G56.01 - Carpal tunnel syndrome, right upper limb Category: Medical Plan 1. Status post right cubital tunnel release 2. Status post right carpal tunnel release Still experiencing dense numbness postoperatively DOS 10/13/2024 Out of an abundance of caution due to the redness around the incision for his cubital tunnel release, I have prescribed the patient a one-week course of Augmentin Patient is advised on proper methods of taking antibiotics Patient will follow-up in 1 week for wound check, sooner with any acute concerns Medications: New amoxicillin-pot clavulanate 875-125 mg 1 tab PO BID 14 tabs 0RF 7 days Coding Level of Care Code Global (68478) Diagnoses Cubital tunnel syndrome on right G56.21 Carpal tunnel syndrome of right wrist G56.01
== END 2024-10-25 15:43 | disposition home or self-care (01) ==
LOC: HO.HOS 14:57
PROVIDERS: PCP Internal Medicine
DX: G56.21 Lesion of ulnar nerve, right upper limb (principal); G56.01 Carpal tunnel syndrome, right upper limb
CPT/HCPCS: 99024

== ENCOUNTER → 2024-10-25 14:56 | Outpatient (BNVA) | payer OTHER, SELFPAY | PROVIDERS: PCP Internal Medicine | DX: Z48.811 Encounter for surgical aftercare following surgery on the nervous system (principal); Z98.890 Other specified postprocedural states | CPT/HCPCS: 99212 ==

== ENCOUNTER 2024-10-28 09:41 | Day surgery (SDC) | payer OTHER, SELFPAY ==
--- NOTE | 2024-10-27 12:28 | HO.ANESPROP2 ---
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 - stable since 2017 Chronic opioids PMFSH Active Problems Active Problems: All Active Problems Dysphagia (Acute) Pre-op examination (Acute) Cubital tunnel syndrome on right (Acute) Carpal tunnel syndrome of right wrist (Acute) Primary osteoarthritis, right shoulder (Acute) Osteoarthritis of right shoulder (Acute) Right upper extremity numbness (Acute) Tubular adenoma of colon (Acute) Chronic low back pain (Acute) GERD (gastroesophageal reflux disease) (Acute) Open-angle glaucoma (Acute) Papilloma (Acute) T12 compression fracture (Acute) Lumbar degenerative disc disease (Acute) PTSD (post-traumatic stress disorder) (Acute) Depression (Acute) Hard of hearing (Acute) Thoracic aortic aneurysm (Acute) High cholesterol (Acute) Hypertension (Acute) Hypothyroidism associated with surgical procedure (Acute) Past Medical History Medical History Bradycardia Tinnitus GERD (gastroesophageal reflux disease) Thoracic aortic aneurysm Arthritis Back pain PTSD (post-traumatic stress disorder) Depression HTN (hypertension) Chronic, continuous use of opioids Thyroid cancer Family History Family History Father No problems noted. Mother No problems noted. Family history of problems with anesthesia: No Surgical History Surgical History H/O thyroidectomy Hx of removal of testicle Hx of inguinal hernia repair History of esophagogastroduodenoscopy (EGD) Hx of colonoscopy Hx of knee surgery History of Problems with Anesthesia: No Social History Social History Are you a primary critical care technician to a significant other at home: No Do you presently have visiting nurse or other home services: No Alcohol intake: never Patient Tobacco Use Status: Never used Tobacco Have you been hit, kicked, punched, or otherwise hurt by someone within the past year? If so, by whom?: No Are you DNR?: No Advance Directives: No Advance Directives Information Provided: Yes Poor oral hygiene: No Current occupational status: retired Current occupation: right hand dominant Meds Allergies Allergy/AdvReac Type Severity Reaction Status Date / Time No Known Allergies Allergy Verified 10/28/24 11:29 Home Medications ?Medication ?Instructions ?Recorded ?Confirmed ?Last Taken ?Type amlodipine 2.5 mg tablet 2.5 mg PO DAILY 01/14/22 10/28/24 Unknown History aspirin 81 mg tablet,delayed 81 mg PO DAILY 01/14/22 10/28/24 10/21/24 History release atorvastatin 40 mg tablet 40 mg PO DAILY 01/14/22 10/28/24 Unknown History dorzolamide 2 % eye drops 1 drp ophthalmic (eye) TID 01/14/22 10/28/24 Unknown History gabapentin 300 mg capsule 300 mg PO DAILY 01/14/22 10/28/24 Unknown History hydrochlorothiazide 25 mg tablet 25 mg PO DAILY 01/14/22 10/28/24 Unknown History latanoprost 0.005 % eye drops 1 drp ophthalmic (eye) DAILY 01/14/22 10/28/24 Unknown History levothyroxine 125 mcg capsule 150 mcg PO DAILY 01/14/22 10/28/24 Unknown History magnesium oxide 420 mg tablet 420 mg PO BEDTIME 01/14/22 10/28/24 Unknown History sertraline 25 mg tablet 25 mg PO DAILY 01/14/22 10/28/24 Unknown History simethicone 80 mg chewable tablet 80 mg PO BEDTIME 01/14/22 10/28/24 Unknown History (Gas Relief (simethicone)) terazosin 2 mg capsule 2 mg PO DAILY 01/14/22 10/28/24 Unknown History trazodone 50 mg tablet 25 mg PO DAILY 01/14/22 10/28/24 Unknown History potassium chloride 20 mEq/15 mL 20 meq PO DAILY 05/08/22 10/28/24 Unknown History oral liquid Exam Pertinent Lab Results Pertinent Lab Results: Laboratory Tests 09/08/24 11:04 WBC 6.2 Hgb 14.4 Hct 43.1 Plt Count 232 Sodium 142 Potassium 3.6 Chloride 105 Carbon Dioxide 29 BUN 22 H Creatinine 0.90 Narrative Narrative: NM milagro perf SPECT rest & str 2023 Impression: 1. Myocardial perfusion imaging study shows likely normal myocardial perfusion 2. Gated LVEF is 63% 3. Transient ischemic dilatation not present EKG is nondiagnostic for ischemia Assessment and Plan Assessment Anesthesia Assessment: Chart Reviewed Final Anesthetic Review Family History of Problems with Anesthesia: No History of Problems with Anesthesia: No Documented by User: Amanda Donovan MD 10/28/24 14:32 REPLACED BY [facility] Past Medical History Medical History Bradycardia Tinnitus GERD (gastroesophageal reflux disease) Thoracic aortic aneurysm Arthritis Back pain PTSD (post-traumatic stress disorder) Depression HTN (hypertension) Chronic, continuous use of opioids Thyroid cancer Family History Family History Father No problems noted. Mother No problems noted. Surgical History Surgical History H/O thyroidectomy Hx of removal of testicle Hx of inguinal hernia repair History of esophagogastroduodenoscopy (EGD) Hx of colonoscopy Hx of knee surgery Social History Social History Are you a primary critical care technician to a significant other at home: No Do you presently have visiting nurse or other home services: No Alcohol intake: never Patient Tobacco Use Status: Never used Tobacco Have you been hit, kicked, punched, or otherwise hurt by someone within the past year? If so, by whom?: No Are you DNR?: No Advance Directives: No Advance Directives Information Provided: Yes Poor oral hygiene: No Current occupational status: retired Current occupation: right hand dominant Meds Allergies Allergy/AdvReac Type Severity Reaction Status Date / Time No Known Allergies Allergy Verified 10/28/24 11:29 Home Medications ?Medication ?Instructions ?Recorded ?Confirmed ?Last Taken ?Type amlodipine 2.5 mg tablet 2.5 mg PO DAILY 01/14/22 10/28/24 Unknown History aspirin 81 mg tablet,delayed 81 mg PO DAILY 01/14/22 10/28/24 10/21/24 History release atorvastatin 40 mg tablet 40 mg PO DAILY 01/14/22 10/28/24 Unknown History dorzolamide 2 % eye drops 1 drp ophthalmic (eye) TID 01/14/22 10/28/24 Unknown History gabapentin 300 mg capsule 300 mg PO DAILY 01/14/22 10/28/24 Unknown History hydrochlorothiazide 25 mg tablet 25 mg PO DAILY 01/14/22 10/28/24 Unknown History latanoprost 0.005 % eye drops 1 drp ophthalmic (eye) DAILY 01/14/22 10/28/24 Unknown History levothyroxine 125 mcg capsule 150 mcg PO DAILY 01/14/22 10/28/24 Unknown History magnesium oxide 420 mg tablet 420 mg PO BEDTIME 01/14/22 10/28/24 Unknown History sertraline 25 mg tablet 25 mg PO DAILY 01/14/22 10/28/24 Unknown History simethicone 80 mg chewable tablet 80 mg PO BEDTIME 01/14/22 10/28/24 Unknown History (Gas Relief (simethicone)) terazosin 2 mg capsule 2 mg PO DAILY 01/14/22 10/28/24 Unknown History trazodone 50 mg tablet 25 mg PO DAILY 01/14/22 10/28/24 Unknown History potassium chloride 20 mEq/15 mL 20 meq PO DAILY 05/08/22 10/28/24 Unknown History oral liquid Exam Airway Mallampati Class: III TM Dist: >3cm Neck ROM: Full Loose/Missing/Broken Teeth: No Heart: RRR Lungs: CTA Assessment and Plan Assessment Anesthesia Assessment: Anesthesia Plan Discussed Final Anesthetic Review NPO: Yes ASA Class: III Final Preanesthetic Review: Meds/Allgs Chart Reviewed, Consent Obtained/Reviewed and Anes Risks/Benef Reviewed Patient Risk: Intermediate Procedure Risk: Intermediate Anesthetic Plan Anesthetic Plan: MAC: Disposition: Standard PACU
[2024-10-28 11:13] VITALS: BMI 32.7
[2024-10-28] MEDS: Lactated Ringers 1,000 ML 100 ML IVCONT (11:20)
[2024-10-28 11:26] VITALS: BP 117/62; PULSE 46; RESP 18; TEMP 36.7; O2SAT 98
--- NOTE | 2024-10-28 12:15 | MHC.SHP ---
Pre-Procedural Eval Section A - 24 Hr Update-Section A only Date of Service: 10/28/24 The patient is an INPATIENT: No The patient has been examined within 24 hours of the surgical procedure. The History & Physical has been completed within 30 days and I have reviewed it.: No Section B - Complete if H&P > 30 days Chief Complaint: GERD, dysphagia Relevant Family History (Specify if Yes): No Relevant Social History: Tobacco Use Present Medications: see Short Stay Collaborative assessment Medical History: Significant History (Chronic, continuous use of opioids Tinnitus GERD (gastroesophageal reflux disease) Thoracic aortic aneurysm Arthritis Back pain PTSD (post-traumatic stress disorder) Depression HTN (hypertension) Thyroid cancer) History of Previous Operations: Relevant previous surgery/procedure and date(s) (H/O thyroidectomy Hx of removal of testicle Hx of inguinal hernia repair History of esophagogastroduodenoscopy (EGD) Hx of colonoscopy Hx of knee surgery) Allergies: Allergies Allergy/AdvReac Type Severity Reaction Status Date / Time No Known Allergies Allergy Verified 10/28/24 11:29 Review of Systems Sugical H&P ROS: Negative: Constitution, Cardiovascular, Respiratory and Gastrointestinal Exam Surgical H&P Exam: Normal: Heart, Normal: Lungs, Normal: Extremities and Normal: Abdomen Plan Diagnosis/Plan: Change (proceed with EGD since pt had a negative colon within the past 3 yrs) I have reviewed the history and physical and performed a pertinent physical examination on my patient. No changes have occurred unless specified. Time Spent With Patient Time: Total time managing care of this patient today ____ minutes.
[2024-10-28 14:10] VITALS: BP 99/51; PULSE 45; RESP 18; TEMP 36.1; O2SAT 97
--- NOTE | 2024-10-28 14:11 | W.PM.OPN ---
Operative Note Operative Note Date of Service: 10/28/24 Narrative: FLEXIBLE TRANSORAL UPPER GASTROINTESTINAL ENDOSCOPY WITH BIOPSIES AND ESOPHAGEAL BALLOON DILATION Pre-op diagnosis: GERD, Dysphagia Post-op diagnosis: GERD, hiatal hernia, esophageal nodule Gastritis, Endoscopist:? Melecio Timmons MD Anesthesia:?MAC UPPER ENDOSCOPY Consent: Indications for the procedure and potential complications of bleeding, perforation, reaction to medications and missed diagnosis were discussed with the patient and informed consent was obtained. Instrument: Olympus GIF H 190 mid size upper endoscope Monitoring: Vital signs and clinical assessment, continuous EKG monitoring, Pulse oximetry, Carbon Dioxide monitoring and blood pressure monitoring were done throughout the procedure. Procedure: The patient was placed in the left lateral decubitis position and pre-procedure medications were administered and a bite block was placed. The endoscope was inserted into the mouth and advanced under direct vision to the third part of duodenum. A careful inspection was made as the upper endoscope was withdrawn including a retroflexed examination of the proximal stomach; Findings and interventions are described below. Findings: Larynx: Normal Esophagus: GE junction at 40 cms, small hiatal hernia 40-42 cm, . Mildly tortuous esophagus without stricture or ring. A 1 cms ulcerated nodule on gastric side of GE junction - biopsied Empiric balloon dilation of the proximal esophagus was performed with an 18 mm balloon and distal esophagus with a 20 mm CRE balloon X 60 seconds at each level Stomach: Moderate diffuse gastric erythema - biopsies were obtained from the antrum. An area of patchy erythema in the gastric body from 60 to 70 cms - biopsies were obtained. Grade 2 flap valve on retroflexed examination of the cardia. Duodenum: Normal bulb and descending duodenum Intervention: Biopsies as noted above Impression and Post Procedure Diagnosis: Endoscopy Findings: ESOPHAGUS: Small hiatal hernia with mildly tortuous esophagus without stricture or ring. A 1 cms ulcerated nodule on gastric side of GE junction - biopsied Empiric balloon dilation of the proximal esophagus was performed with an 18 mm balloon and distal esophagus with a 20 mm CRE balloon. STOMACH: An area of patchy erythema in the gastric body from 60 to 70 cms - biopsies were obtained. DUODENUM: Normal Plan: Pt has a FU appointment on 11/10/24 with Amber Mendoza NP. Above findings were reviewed with the patient and relevant handouts were given and the discharge area. BIOPSIES SHOWED: A. Stomach, antrum, biopsy: Gastric antral mucosa with reactive gastropathy; negative for Helicobacter pylori, intestinal metaplasia and dysplasia. B. Stomach, body, biopsy: Gastric body mucosa within normal limits; negative for Helicobacter pylori, intestinal metaplasia and dysplasia. C. Gastroesophageal junction, nodule, biopsy: Gastric fundic-type mucosa with reactive gastropathy, focal active gastritis and surface foveolar hyperplastic change; no squamous mucosa seen; negative for intestinal metaplasia and dysplasia
[2024-10-28 14:25] VITALS: BP 103/58; PULSE 46; RESP 16; O2SAT 95
[2024-10-28 14:36] VITALS: BP 108/60; PULSE 47; RESP 16; TEMP 36.2; O2SAT 96
== END 2024-10-28 15:01 | disposition home or self-care (01) ==
PROVIDERS: PCP Internal Medicine; Visit Provider Internal Medicine Gastroenterology
PROC: 0DJ08ZZ Inspection of Upper Intestinal Tract, Via Natural or Artificial Opening Endoscopic (ICD-10-PCS; CPT 43235; principal; 2024-10-28 12:00)
DX: R13.10 Dysphagia, unspecified (principal); K22.81 Esophageal polyp; K22.2 Esophageal obstruction; K44.9 Diaphragmatic hernia without obstruction or gangrene; K31.89 Other diseases of stomach and duodenum; K29.60 Other gastritis without bleeding; K21.9 Gastro-esophageal reflux disease without esophagitis; I10 Essential (primary) hypertension; Z85.850 Personal history of malignant neoplasm of thyroid; E78.00 Pure hypercholesterolemia, unspecified; Z79.02 Long term (current) use of antithrombotics/antiplatelets; Z79.82 Long term (current) use of aspirin; Z79.899 Other long term (current) drug therapy
CPT/HCPCS: 43249; 43239; 88305; 88313; 88342; C1726; J2003; J2704

== ENCOUNTER → 2024-10-28 09:41 | Outpatient (BNV) | payer OTHER, SELFPAY | PROVIDERS: PCP Internal Medicine; Visit Provider Internal Medicine Gastroenterology | DX: K21.9 Gastro-esophageal reflux disease without esophagitis (principal); R13.10 Dysphagia, unspecified; K22.82 Esophagogastric junction polyp; K29.70 Gastritis, unspecified, without bleeding | CPT/HCPCS: 43239; 43249 ==

== ENCOUNTER 2024-11-02 14:21 | Outpatient (AMB) | payer OTHER, SELFPAY ==
--- NOTE | 2024-11-02 14:26 | A.OFFVIS_ITS ---
Intake Visit Reasons: PO RT Cubital/CTR 10/13/24 AR-Wound check Intake Note: Aftab is a 79 year old right hand dominant male who presents today for a post operative wound check s/p Right Cubital and Carpal Tunnel Release 10/13/24. At his last visit he was given a course of Augmentin due to redness at cubital tunnel incision. Patient reports that he has completed his Abx course. He continues to have numbness but he is aware that this may not fully resolve. Allergies No Known Allergies Allergy (Verified 11/02/24 14:30) HPI HPI PO RT Cubital/CTR 10/13/24 AR-Wound check: Details: Aftab is a 79 year old right hand dominant male who presents today for a post operative wound check s/p Right Cubital and Carpal Tunnel Release 10/13/24. At his last visit he was given a course of Augmentin due to redness at cubital tunnel incision. Patient reports that he has completed his Abx course. He continues to have numbness but he is aware that this may not fully resolve. [facility] Medical History Bradycardia Tinnitus GERD (gastroesophageal reflux disease) Thoracic aortic aneurysm Arthritis Back pain PTSD (post-traumatic stress disorder) Depression HTN (hypertension) Chronic, continuous use of opioids Thyroid cancer Surgical History H/O thyroidectomy Hx of removal of testicle Hx of inguinal hernia repair History of esophagogastroduodenoscopy (EGD) Hx of colonoscopy Hx of knee surgery Family History Father No problems noted. Mother No problems noted. Social History Are you a primary healthcare consulting manager to a significant other at home: No Do you presently have visiting nurse or other home services: No Alcohol intake: never Patient Tobacco Use Status: Never used Tobacco Current occupational status: retired Current occupation: right hand dominant Review of Systems Const All systems reviewed & are unremarkable except as noted in HPI and below Physical Exam Const General: no acute distress and alert Orientation/consciousness: patient oriented x3 Neuro General: patient oriented x3 Extrem Other: Evaluation of Right Upper Extremity: The patient is alert, oriented, and in no acute distress Neuro: Median, Ulnar, Radial nerves motor and sensory intact except for dense numbness in the ulnar nerve distribution of the fingers and dorsal ulnar aspect of the hand. Normal sensation in the median nerve distribution No thenar or intrinsic wasting Good APB muscle belly firing and good finger cross Some weakness with Small finger ADduction Vascular: Cap refill brisk ROM: He can make a fist and extend all his digits No locking or catching Some arthritic changes in all digits, particularly the PIP joints Skin: There is no further redness around the incision site on the medial aspect of the patient's right elbow Incisions on right elbow and right wrist are well approximated and well healing No evidence of redness around incision on volar right wrist Psych Appearance: grossly normal Affect: normal affect Attitude: cooperative Assessment & Plan Assessment & Plan (1) Cubital tunnel syndrome on right: Code(s): G56.21 - Lesion of ulnar nerve, right upper limb Category: Medical (2) Carpal tunnel syndrome of right wrist: Code(s): G56.01 - Carpal tunnel syndrome, right upper limb Category: Medical Plan 1. Status post right cubital tunnel release 2. Status post right carpal tunnel release Still experiencing dense numbness postoperatively DOS 10/13/2024 Patient appears to be recovering well postoperatively Patient is educated about the typical recovery course Any evidence of infection has resolved No acute follow-up needed Follow-up as is necessary Coding Level of Care Code Global (64788) Diagnoses Cubital tunnel syndrome on right G56.21 Carpal tunnel syndrome of right wrist G56.01
== END 2024-11-02 14:32 | disposition home or self-care (01) ==
LOC: HO.HOS 14:21
PROVIDERS: PCP Internal Medicine
DX: G56.21 Lesion of ulnar nerve, right upper limb (principal); G56.01 Carpal tunnel syndrome, right upper limb
CPT/HCPCS: 99024

== ENCOUNTER → 2024-11-02 14:21 | Outpatient (BNVA) | payer OTHER, SELFPAY | PROVIDERS: PCP Internal Medicine | DX: Z09 Encounter for follow-up examination after completed treatment for conditions other than malignant neoplasm (principal); Z86.69 Personal history of other diseases of the nervous system and sense organs; Z98.890 Other specified postprocedural states | CPT/HCPCS: 99212 ==

== ENCOUNTER 2024-11-10 10:57 | Outpatient (AMB) | payer OTHER, SELFPAY ==
--- NOTE | 2024-11-10 11:11 | MHC.OFFVIS ---
Vital Signs 11/10/24 11:14 Height 5 ft 10 in Weight 231 lb 7.766 oz BMI 33.2 BP 127/61 Blood Pressure Location Lt brachial Position Sitting Pulse 52 Intake Visit Reasons: F/U results Intake Note: Aftab presents in the office as a follow up for results. CC: He states that he is not having any concerns at this time. Staffing Assistant Required: No Allergies No Known Allergies Allergy (Verified 11/10/24 11:14) HPI HPI F/U results: Details: Assessment & Plan (1) Pre-op examination: Code(s): Z01.818 - Encounter for other preprocedural examination Category: Medical (2) GERD (gastroesophageal reflux disease): Comment: resolved after thyroid cancer surgery Code(s): K21.9 - Gastro-esophageal reflux disease without esophagitis Category: Medical (3) Tubular adenoma of colon: Comment: On remote past scope by Dr. Flaherty per record. Code(s): D12.6 - Benign neoplasm of colon, unspecified Category: Medical (4) Dysphagia: Comment: Of solid foods, status post radiation therapy for thyroid cancer Code(s): R13.10 - Dysphagia, unspecified Category: Medical Plan (he served in the [employer]!) He has had 4 prior colonoscopies. The last we have on record 2017. He thought he had a colonoscopy 5 years ago but that may have just been the EGD that was performed in 2019. He denies any cardiac or respiratory problems. There are no prior problems with anesthesia or sedation. There are no ID problems. He has dysphagia r/t post radiation therapy he has seen speech and hearing for swallowing hygiene, needs water to pass dry food. There is no known family history of colon cancer or polyps but then again he had a tubular adenoma on a past exam. Orders: Orders Complete Blood Count Auto Diff Today Z01.818 - Encounter for other preprocedural examination EGD/Ferrum Combo - GI Use Only Today Z01.818 - Encounter for other preprocedural examination Comprehensive Met. Panel Today Z01.818 - Encounter for other preprocedural examination Medications: New peg 3350-electrolytes 236-22.74-6.74 -5.86 gram (Golytely) until fecal effluent is clear; do not exceed a total volume of 2,000 mL 240 mL PO Q10M 4,000 mL 0RF 1 day Z12.11 - Encounter for screening for malignant neoplasm of colon bisacodyl (Dulcolax (bisacodyl)) 10 mg (2 x 5 mg) PO BEDTIME 4 tabs 0RF 2 days LABS: EGD/COLONOSCOPY? COLONOSCOPY NOT PERFORMED Findings: Larynx: Normal Esophagus: GE junction at 40 cms, small hiatal hernia 40-42 cm, . Mildly tortuous esophagus without stricture or ring. A 1 cms ulcerated nodule on gastric side of GE junction - biopsied Empiric balloon dilation of the proximal esophagus was performed with an 18 mm balloon and distal esophagus with a 20 mm CRE balloon X 60 seconds at each level Stomach: Moderate diffuse gastric erythema - biopsies were obtained from the antrum. An area of patchy erythema in the gastric body from 60 to 70 cms - biopsies were obtained. Grade 2 flap valve on retroflexed examination of the cardia. Duodenum: Normal bulb and descending duodenum Intervention: Biopsies as noted above Impression and Post Procedure Diagnosis: Endoscopy Findings: ESOPHAGUS: Small hiatal hernia with mildly tortuous esophagus without stricture or ring. A 1 cms ulcerated nodule on gastric side of GE junction - biopsied Empiric balloon dilation of the proximal esophagus was performed with an 18 mm balloon and distal esophagus with a 20 mm CRE balloon. STOMACH: An area of patchy erythema in the gastric body from 60 to 70 cms - biopsies were obtained. DUODENUM: Normal Plan: Pt has a FU appointment on 11/10/24 with Amber Mendoza NP. Above findings were reviewed with the patient and relevant handouts were given and the discharge area. BIOPSIES SHOWED: A. Stomach, antrum, biopsy: Gastric antral mucosa with reactive gastropathy; negative for Helicobacter pylori, intestinal metaplasia and dysplasia. B. Stomach, body, biopsy: Gastric body mucosa within normal limits; negative for Helicobacter pylori, intestinal metaplasia and dysplasia. C. Gastroesophageal junction, nodule, biopsy: Gastric fundic-type mucosa with reactive gastropathy, focal active gastritis and surface foveolar hyperplastic change; no squamous mucosa seen; negative for intestinal metaplasia and dysplasia CORRESPONDENCE On 10/27/24 @ 08:32 Melecio Timmons Wrote To Amber Mendoza (2) Pt has a remote hx of colon polyps. Colonoscopy in [address] Flaherty did not reveal any polyps. Pt still needs the EGD for evaluation of dysphagia and Colonoscopy can be cancelled (too early given negative colon in 2021) Thanks On 10/27/24 @ 08:02 Suyapa Sifuentes Wrote To Suyapa Sifuentes (2) OK to cancel colonoscopy for tomorrow? On 10/26/24 @ 10:56 Amber Mendoza Wrote To Suyapa Sifuentes Its up to Dr. Timmons. Whatever she thinks is best is ok with m TODAY'S VISIT NO improvement with his swallowing, but his radiation damage seems more global than localized. He knows he needs to practice safe swallowing precautions and keep water on hand. Because he did have some localized active irritation on biopsy I suggested that he use p.r.n. Pepcid and will give him prescription. Since he goes back and forth between [facility] and [place] he will probably have the [place] take over prescribing this for him. He was using simethicone chewables but I explained this does not protect the esophagus a gets to acid. Return office visit p.r.n. as needed for colonoscopy screening etc. [facility] Medical History Bradycardia Tinnitus GERD (gastroesophageal reflux disease) Thoracic aortic aneurysm Arthritis Back pain PTSD (post-traumatic stress disorder) Depression HTN (hypertension) Chronic, continuous use of opioids Thyroid cancer Surgical History (Updated 11/10/24 @ 11:15 by ANAMARIA Pack) Hx of carpal tunnel repair Hx of elbow surgery H/O thyroidectomy Hx of removal of testicle Hx of inguinal hernia repair History of esophagogastroduodenoscopy (EGD) Hx of colonoscopy Hx of knee surgery Family History Father No problems noted. Mother No problems noted. Social History Are you a primary care aide to a significant other at home: No Do you presently have visiting nurse or other home services: No Alcohol intake: never Patient Tobacco Use Status: Never used Tobacco Current occupational status: retired Current occupation: right hand dominant Review of Systems Const Denies fatigue, Denies fever(s), Denies night sweats, Denies poor appetite and Denies weight loss Eyes Details: Glasses Reports requires corrective lenses ENT Reports Normal hearing present, Denies dental pain, Reports dysphagia, Denies hearing loss, Denies mouth pain, Denies odynophagia, Denies throat swelling, Denies tongue swelling and Reports other (Dentition adequate) Card Reports no additional complaints Resp Reports no additional complaints GI Details: Denies abdominal pain, Denies melena, Reports bloating, Denies hematochezia, Denies constipation, Denies GI cramping, Reports dysphagia, Denies excessive flatus, Denies early satiety, Reports heartburn, Denies diarrhea, Denies nausea, Denies odynophagia, Denies vomiting and Denies hematemesis Skin/Breast Denies pruritus, Denies lesions, Denies rash and Denies jaundice Neuro Reports Normal hearing present and Denies Abnormal speech present Endo Denies fatigue Aller/Immun Denies throat swelling and Denies tongue swelling Physical Exam Vital Signs: Last Vital Signs Pulse 52 11/10/24 11:14 BP 127/61 11/10/24 11:14 BMI result Body Mass Index 33.2 Const General: cooperative, no acute distress, well developed and well groomed Nutritional Appearance: well nourished and obese Orientation/consciousness: oriented to person, oriented to place and oriented to time Limitations: No language barrier HEENT Head: Yes normocephalic and Yes atraumatic Eyes General: appearance normal, both eyes and all related structures Pupils: Equal, round and reactive pupils present Neck Neck: Yes normal visual inspection and Yes no lymphadenopathy Thyroid: Thyroid normal Resp Effort & Inspection: normal respiratory effort and able to speak in complete sentences Auscultation: clear to auscultation bilaterally Cardio Rate: regular rate Rhythm: regular rhythm Heart sounds: Normal, physiologic split S2 sound present Peripheral pulses: radial pulses present and posterior tibial pulses present GI Inspection: No distended, No Abdominal panniculus present and Yes obesity Palpation (GI): Soft to palpation, nontender, no guarding, not rigid and No hepatosplenomegaly present Percussion: Yes normal to percussion Auscultation: normal bowel sounds Rectal Exam - Male: Yes deferred Skin General skin exam: no rashes or lesions noted, turgor normal, skin not dry, no jaundice, No spider nevi and no striae Rashes: no rashes Nails: normal Neuro General: oriented to person, oriented to place and oriented to time Cranial nerves: Yes Equal, round and reactive pupils present and Yes Normal hearing present Speech: No Abnormal speech present Extrem General: Yes normal to inspection, No clubbing, No cyanosis and No edema Psych Appearance: grossly normal and well kempt Mental Status: mental status grossly normal Speech and movement: Normal speech and movement present Affect: normal affect Attitude: cooperative Thought process: Normal thought process present and not confabulating Thought content: Normal thought content present Insight: Good insight present (Psych) Judgement: Good judgement present (Psych) Assessment & Plan Assessment & Plan (1) Dysphagia: Comment: Of solid foods, status post radiation therapy for thyroid cancer Code(s): R13.10 - Dysphagia, unspecified Category: Medical Plan NO improvement with his swallowing, but his radiation damage seems more global than localized. He knows he needs to practice safe swallowing precautions and keep water on hand. Because he did have some localized active irritation on biopsy I suggested that he use p.r.n. Pepcid and will give him prescription. Since he goes back and forth between [facility] and [place] he will probably have the [place] take over prescribing this for him. He was using simethicone chewables but I explained this does not protect the esophagus a gets to acid. Return office visit p.r.n. as needed for colonoscopy screening etc. Medications: New famotidine (Pepcid) 40 mg PO BEDTIME PRN 30 tabs 6RF heartburn R13.10 - Dysphagia, unspecified Coding Level of Care Code Est Pt Level 3 (29036) Diagnoses Dysphagia R13.10
[2024-11-10 11:14] VITALS: BP 127/61; PULSE 52; BMI 33.2
== END 2024-11-10 11:42 | disposition home or self-care (01) ==
LOC: HO.HGI 10:57
PROVIDERS: PCP Internal Medicine; Referring Provider Nurse Practitioner; Visit Provider Nurse Practitioner
DX: R13.10 Dysphagia, unspecified (principal)
CPT/HCPCS: 99213

== ENCOUNTER → 2024-11-10 10:57 | Outpatient (BNVA) | payer OTHER, SELFPAY | PROVIDERS: PCP Internal Medicine; Visit Provider Nurse Practitioner | DX: K21.9 Gastro-esophageal reflux disease without esophagitis (principal); R13.10 Dysphagia, unspecified | CPT/HCPCS: 99212 ==